=== PATIENT | female | born 1950 | race Caucasian/White ===

== ENCOUNTER 2020-02-05 07:21 | Outpatient (REF) | payer MEDICARE, OTHER, SELFPAY ==
[2020-02-05 08:28] LABS: MANUAL DIFF FLAG NO
[2020-02-05 08:31] LABS: Basophils Absolute Auto 0.1 X10*3/uL (0.0-0.2); Basophils Percent Auto 0.7 % (0-2); Eosinophils Absolute Auto 0.2 X10*3/uL (0.0-0.4); Hematocrit 42.3 % (37-47); Hemoglobin 13.8 g/dl (12.0-16.0); Imm Gran Abs Auto 0.02 X10*3/uL (0.00-0.03); Imm Gran Pct Auto 0.3 % (0.0-0.4); Lymphocytes Absolute Auto 2.2 X10*3/uL (1.2-4.9); Lymphocytes Percent Auto 33.4 % (20-40); Mean Corpuscular HGB Conc 32.6 g/dl (31.0-35.0); Mean Corpuscular Volume 88.9 fL (80-98); Mean Platelet Volume 9.5 fL (9.4-12.3); Monocytes Absolute Auto 0.6 X10*3/uL (0.1-1.2); Monocytes Percent Auto 8.7 % (2-11); Neutrophils Absolute Auto 3.6 X10*3/uL (2.0-8.3); Neutrophils Percent Auto 53.9 % (45-73); Platelet Count 175 X10*3/uL (160-400); Red Blood Count 4.76 X10*6/uL (4.20-5.50); Red Cell Distribution Width 13.1 % (11.0-16.0); White Blood Count 6.7 X10*3/uL (4.8-10.8)
[2020-02-05 08:47] LABS: Estimated Average Glucose 163 mg/dL; Hemoglobin A1c % 7.3 %
[2020-02-05 09:05] LABS: Glucose Urine UA NEG (NEG); Leukocyte Esterase Urine 1+ (NEG); Nitrite Urine NEG (NEG); Specific Gravity - Urine 1.025 (1.005-1.025); Urine Blood TRACE (NEG); Urine Ketones NEG (NEG); Urine Protein NEG (NEG-TRACE)
[2020-02-05 09:07] LABS: Appearance Urine HAZY; Color Urine YELLOW
[2020-02-05 09:17] LABS: RBC Urine 0-2 /HPF (0); Squamous Epithelial Cell Urine 1+ /LPF
[2020-02-05 09:18] LABS: Mucus Urine 1+ /LPF
[2020-02-05 09:32] LABS: Microalbum/Creatinine Ratio Ur 5.4 ug/mg cr
[2020-02-05 09:35] LABS: Alanine Aminotransferase 26 U/L (0-31); Albumin Level 4.2 g/dL (3.5-5.0); Alkaline Phosphatase 73 U/L (39-117); Anion Gap 14 (12-20); Aspartate Amino Transferase 28 U/L (5-31); Bilirubin Total 0.5 mg/dL (0.0-1.0); Blood Urea Nitrogen 19 mg/dL (9-16); Calcium 8.9 mg/dL (8.4-10.2); Carbon Dioxide 28 mmol/L (22-29); Chloride 103 mmol/L (96-108); Cholesterol 191 mg/dL; Estimated Glomerular Filt Rate 48; Glucose Fasting 157 mg/dL (60-99); HDL Cholesterol 65 mg/dL; LDL Cholesterol Calculated 111 mg/dl; Potassium 4.3 mmol/l (3.3-5.1); Sodium 141 mmol/L (135-145); Total Protein 6.5 g/dL (6.5-8.0); Triglycerides 75 mg/dL
[2020-02-05 09:55] LABS: Reflex LDLD? No
== END 2020-02-05 07:22 | disposition home or self-care (01) ==
LOC: HO.LAB 07:21
PROVIDERS: Visit Provider Internal Medicine
DX: I10 Essential (primary) hypertension (principal); E11.9 Type 2 diabetes mellitus without complications; E78.00 Pure hypercholesterolemia, unspecified; N95.8 Other specified menopausal and perimenopausal disorders
CPT/HCPCS: 36415; 80053; 80061; 81001; 81003; 82043; 83036; 85025

== ENCOUNTER 2020-04-25 08:27 | Outpatient (REF) | payer MEDICARE, OTHER, SELFPAY ==
--- NOTE | ~2020-04-25 | MM_ITS ---
EXAMINATION: MM SCREENING DIGITAL BREAST TOMOSYNTHESIS, BILATERAL CLINICAL INFORMATION: Screening. Asymptomatic. The lifetime risk of breast cancer based on the Tyrer-Cuzick Model is 3%. COMPARISON: Mammography: 04/20/2019, 02/03/2017 TECHNIQUE: Digital breast tomosynthesis is performed in both the craniocaudal and mediolateral oblique views along with computer-aided detection (CAD). Synthesized 2D images are generated from the tomosynthesis. FINDINGS: There are scattered areas of fibroglandular density (ACR BI-RADS breast composition Category b). There are no significant masses, abnormal calcifications, or other abnormalities. Parenchymal pattern is similar to prior studies. No developing density. The axilla and skin contours are unremarkable. MM/MM tomosynthesis screening BI IMPRESSION: No mammographic evidence of malignancy. ASSESSMENT: BI-RADS 1: Negative RECOMMENDATION: Routine annual mammography screening. This patient's information was entered into a reminder system with a target due date for their next mammogram.
== END 2020-04-25 08:28 | disposition home or self-care (01) ==
LOC: HO.MAMMO 08:27
PROVIDERS: Visit Provider Internal Medicine
DX: Z12.31 Encounter for screening mammogram for malignant neoplasm of breast (principal)
CPT/HCPCS: 77063; 77067

== ENCOUNTER 2020-08-08 09:43 | Outpatient (REF) | payer MEDICARE, OTHER, SELFPAY ==
[2020-08-08 10:17] LABS: Estimated Average Glucose 163 mg/dL; Hemoglobin A1c % 7.3 %
[2020-08-08 10:45] LABS: Alanine Aminotransferase 29 U/L (0-31); Albumin Level 4.2 g/dL (3.5-5.0); Alkaline Phosphatase 70 U/L (39-117); Aspartate Amino Transferase 30 U/L (5-31); Bilirubin Direct 0.2 mg/dL (0.0-0.5); Bilirubin Total 0.6 mg/dL (0.0-1.0); Cholesterol 185 mg/dL; Glucose Fasting 149 mg/dL (60-99); HDL Cholesterol 59 mg/dL; LDL Cholesterol Calculated 103 mg/dl; Total Protein 6.4 g/dL (6.5-8.0); Triglycerides 119 mg/dL
[2020-08-08 11:30] LABS: Reflex LDLD? No
== END 2020-08-08 09:44 | disposition home or self-care (01) ==
LOC: HO.LNP 09:43
PROVIDERS: Visit Provider Internal Medicine
DX: E11.9 Type 2 diabetes mellitus without complications (principal); E78.00 Pure hypercholesterolemia, unspecified
CPT/HCPCS: 80061; 80076; 82947; 83036

== ENCOUNTER 2021-02-24 10:21 | Outpatient (REF) | payer MEDICARE, OTHER, SELFPAY ==
[2021-02-24 10:24] LABS: MANUAL DIFF FLAG NO
[2021-02-24 10:41] LABS: Basophils Percent Auto 0.5 % (0-2); Eosinophils Absolute Auto 0.2 X10*3/uL (0.0-0.4); Eosinophils Percent Auto 2.6 % (0-4); Hematocrit 41.2 % (37.0-47.0); Hemoglobin 13.4 g/dl (12.0-16.0); Imm Gran Abs Auto 0.02 X10*3/uL (0.00-0.03); Imm Gran Pct Auto 0.3 % (0.0-0.4); Lymphocytes Percent Auto 30.3 % (20-40); Mean Corpuscular HGB Conc 32.5 g/dl (31.0-35.0); Mean Corpuscular Hemoglobin 28.8 pg (27.0-33.0); Mean Corpuscular Volume 88.6 fL (80.0-98.0); Mean Platelet Volume 9.4 fL (9.4-12.3); Monocytes Absolute Auto 0.5 X10*3/uL (0.1-1.2); Monocytes Percent Auto 7.1 % (2-11); Neutrophils Absolute Auto 3.9 x10*3/uL (2.0-8.3); Neutrophils Percent Auto 59.2 % (45-73); Platelet Count 198 X10*3/uL (160-400); Red Blood Count 4.65 X10*6/uL (4.20-5.50); Red Cell Distribution Width 13.6 % (11.0-16.0); White Blood Count 6.6 X10*3/uL (4.8-10.8)
[2021-02-24 10:44] LABS: Appearance Urine CLEAR; Color Urine YELLOW; Glucose Urine UA NEG (NEG); Leukocyte Esterase Urine 1+ (NEG); Nitrite Urine NEG (NEG); Specific Gravity - Urine 1.025 (1.005-1.025); Urine Blood NEG (NEG); Urine Ketones 5 MG/DL (NEG); Urine Protein NEG (NEG-TRACE)
[2021-02-24 10:59] LABS: Estimated Average Glucose 160 mg/dL; Hemoglobin A1c % 7.2 %
[2021-02-24 11:00] LABS: Alanine Aminotransferase 29 U/L (0-31); Albumin Level 4.2 g/dL (3.5-5.0); Alkaline Phosphatase 73 U/L (39-117); Anion Gap 12 (12-20); Aspartate Amino Transferase 26 U/L (5-31); Bilirubin Total 0.4 mg/dL (0.0-1.0); Blood Urea Nitrogen 22 mg/dL (9-16); Calcium 9.5 mg/dL (8.4-10.2); Carbon Dioxide 30 mmol/L (22-29); Chloride 104 mmol/L (96-108); Cholesterol 184 mg/dL; Estimated Glomerular Filt Rate 43; Glucose Fasting 146 mg/dL (60-99); HDL Cholesterol 52 mg/dL; LDL Cholesterol Calculated 106 mg/dl; Sodium 142 mmol/L (135-145); Total Protein 6.7 g/dL (6.5-8.0); Triglycerides 133 mg/dL
[2021-02-24 11:06] LABS: Creatinine Urine 343.72 mg/dL; Microalbum/Creatinine Ratio Ur 6.6 ug/mg cr
[2021-02-24 11:14] LABS: Mucus Urine TRACE /LPF; RBC Urine 0 /HPF (0); Squamous Epithelial Cell Urine TRACE /LPF
[2021-02-24 11:37] LABS: Reflex LDLD? No
== END 2021-02-24 10:22 | disposition home or self-care (01) ==
LOC: HO.LNP 10:21
PROVIDERS: Visit Provider Internal Medicine
DX: E11.9 Type 2 diabetes mellitus without complications (principal); E78.00 Pure hypercholesterolemia, unspecified; I10 Essential (primary) hypertension; R31.9 Hematuria, unspecified
CPT/HCPCS: 80053; 80061; 81001; 82043; 83036; 85025

== ENCOUNTER 2021-08-26 11:08 | Outpatient (REF) | payer MEDICARE, OTHER, SELFPAY ==
[2021-08-26 11:57] LABS: Estimated Average Glucose 154 mg/dL
[2021-08-26 12:37] LABS: Alanine Aminotransferase 21 U/L (0-31); Albumin Level 4.2 g/dL (3.5-5.0); Alkaline Phosphatase 70 U/L (39-117); Aspartate Amino Transferase 27 U/L (5-31); Bilirubin Direct 0.2 mg/dL (0.0-0.5); Bilirubin Total 0.5 mg/dL (0.0-1.0); Cholesterol 186 mg/dL; Glucose Fasting 164 mg/dL (60-99); HDL Cholesterol 53 mg/dL; LDL Cholesterol Calculated 113 mg/dl; Total Protein 6.5 g/dL (6.5-8.0); Triglycerides 100 mg/dL
[2021-08-26 13:56] LABS: Reflex LDLD? No
== END 2021-08-26 11:09 | disposition home or self-care (01) ==
LOC: HO.LNP 11:08
PROVIDERS: PCP Internal Medicine; Visit Provider Internal Medicine
DX: E78.00 Pure hypercholesterolemia, unspecified (principal); E11.9 Type 2 diabetes mellitus without complications
CPT/HCPCS: 80061; 80076; 82947; 83036

== ENCOUNTER 2022-02-24 10:56 | Outpatient (REF) | payer MEDICARE, OTHER, SELFPAY ==
[2022-02-24 11:01] LABS: MANUAL DIFF FLAG NO
[2022-02-24 11:19] LABS: Basophils Absolute Auto 0.1 X10*3/uL (0.0-0.2); Basophils Percent Auto 0.7 % (0-2); Eosinophils Absolute Auto 0.2 X10*3/uL (0.0-0.4); Eosinophils Percent Auto 2.8 % (0-4); Hematocrit 41.6 % (37.0-47.0); Hemoglobin 13.7 g/dl (12.0-16.0); Imm Gran Abs Auto 0.02 X10*3/uL (0.00-0.03); Imm Gran Pct Auto 0.3 % (0.0-0.4); Lymphocytes Absolute Auto 2.7 X10*3/uL (1.2-4.9); Lymphocytes Percent Auto 35.9 % (20-40); Mean Corpuscular HGB Conc 32.9 g/dl (31.0-35.0); Mean Corpuscular Hemoglobin 29.3 pg (27.0-33.0); Mean Corpuscular Volume 89.1 fL (80.0-98.0); Mean Platelet Volume 9.3 fL (9.4-12.3); Monocytes Absolute Auto 0.6 X10*3/uL (0.1-1.2); Monocytes Percent Auto 8.3 % (2-11); Platelet Count 201 X10*3/uL (160-400); Red Blood Count 4.67 X10*6/uL (4.20-5.50); Red Cell Distribution Width 13.3 % (11.0-16.0); White Blood Count 7.6 X10*3/uL (4.8-10.8)
[2022-02-24 11:28] LABS: Estimated Average Glucose 157 mg/dL; Hemoglobin A1c % 7.1 %
[2022-02-24 12:02] LABS: Appearance Urine Clear; Color Urine Yellow; Glucose Urine UA Negative (Negative); Leukocyte Esterase Urine Trace (Negative); Nitrite Urine Negative (Negative); PH 5.5 (5.0-9.0); Specific Gravity - Urine 1.025 (1.005-1.025); UMIC TRIGGER UA YES; Urine Blood Negative (Negative); Urine Ketones Negative (Negative); Urine Protein Negative (Neg-Trace)
[2022-02-24 12:22] LABS: Creatinine Urine 255.52 mg/dL; Microalbum/Creatinine Ratio Ur 6.6 ug/mg cr
[2022-02-24 12:43] LABS: Alanine Aminotransferase 26 U/L (0-31); Albumin Level 4.3 g/dL (3.5-5.0); Alkaline Phosphatase 66 U/L (39-117); Anion Gap 13 (12-20); Aspartate Amino Transferase 28 U/L (5-31); Bilirubin Total 0.5 mg/dL (0.0-1.0); Blood Urea Nitrogen 22 mg/dL (9-16); Calcium 9.6 mg/dL (8.4-10.2); Carbon Dioxide 27 mmol/L (22-29); Chloride 104 mmol/L (96-108); Cholesterol 200 mg/dL; Estimated Glomerular Filt Rate 52; Glucose Fasting 156 mg/dL (60-99); HDL Cholesterol 64 mg/dL; LDL Cholesterol Calculated 117 mg/dl; Potassium 3.9 mmol/L (3.3-5.1); Sodium 140 mmol/L (135-145); Total Protein 6.6 g/dL (6.5-8.0); Triglycerides 95 mg/dL
[2022-02-24 12:47] LABS: Bacteria Urine None Seen (None Seen); Hyaline Casts Urine 0-2 /LPF (0-2); RBC Urine 0-2 /HPF (0-2); Squamous Epithelial Cell Urine 0-2 /HPF (0-2); WBC Urine 0-5 /HPF (0-5)
== END 2022-02-24 10:57 | disposition home or self-care (01) ==
LOC: HO.LNP 10:56
PROVIDERS: Visit Provider Internal Medicine
DX: I10 Essential (primary) hypertension (principal); E11.9 Type 2 diabetes mellitus without complications; E78.00 Pure hypercholesterolemia, unspecified
CPT/HCPCS: 80053; 80061; 81001; 82043; 83036; 85025; 87086

== ENCOUNTER 2022-03-02 11:14 | Outpatient (REF) | payer MEDICARE, OTHER, SELFPAY ==
--- NOTE | ~2022-03-02 | XR_ITS ---
EXAMINATION: XR CHEST CLINICAL INFORMATION: Chronic cough COMPARISON: None TECHNIQUE: 2 views FINDINGS: The cardiomediastinal silhouette is within normal limits. The lungs are well expanded. Small left pleural effusion. Minimal streaky opacity in the left lung base could represent atelectasis. No lobar consolidation. No pulmonary edema. No pneumothorax. No acute osseous abnormality. XR/XR chest 2V IMPRESSION: Suspected small left pleural effusion. Left basilar findings suggesting atelectasis.
== END 2022-03-02 11:15 | disposition home or self-care (01) ==
LOC: HO.XRAY 11:14
PROVIDERS: PCP Internal Medicine; Visit Provider Internal Medicine
DX: R05.3 Chronic cough (principal)
CPT/HCPCS: 71046

== ENCOUNTER 2022-05-22 09:23 | Outpatient (REF) | payer MEDICARE, OTHER, SELFPAY ==
--- NOTE | ~2022-05-22 | CT_ITS ---
EXAMINATION: CT CHEST WITHOUT CONTRAST CLINICAL INFORMATION: Chronic cough. COMPARISON: Chest x-ray 03/05/2022. TECHNIQUE: Multidetector volumetric CT imaging of the chest was done. Axial MIP volume rendering provided. Sagittal and coronal reformatted images were obtained. This CT examination was performed using dose optimization techniques as appropriate, variously including the following: *Automated exposure control *Adjustment of mA and/or kV according to patient size (this includes techniques or standardized protocols for targeted exams where dose is matched to indication/reason for exam; i.e. extremities or head) *Use of iterative reconstruction technique DLP: 136 mGy-cm FINDINGS: SURVEY FIELD TECHNICIAN: Well-inflated lungs are clear. LUNGS: The lungs are well-expanded with several subpleural nodular densities the left lower lobe measuring in the range of 5 mm and less. There is mild bilateral lower lobe bronchiectasis with minimal bronchial wall thickening. No bronchial debris seen. Focal reticular densities in the left lower lobe anterior segment likely atelectasis. There is dependent parenchymal haziness likely atelectasis or nonspecific inflammatory process. This is best visualized on axial image 498/5. MEDIASTINUM: Thyroid lobes are symmetric and normal. The central trachea and the bronchi are widely patent. Heart size and the great vessels are normal caliber. No abnormal sized mediastinal or hilar lymph nodes seen. There is no pericardial effusion. CORONARY ARTERY CALCIFICATION: Mild coronary artery calcifications are present. PLEURA: There is no pleural effusion. No pleural mass or thickening. AXILLA: No abnormal sized lymph nodes seen. The chest wall is unremarkable. UPPER ABDOMEN: Visualized liver, spleen, bilateral adrenal glands, and the gallbladder is unremarkable. OSSEOUS STRUCTURES: No aggressive lytic or sclerotic process seen. There is mild spondylosis throughout the dorsal spine. CT/CT chest wo IV con IMPRESSION: Bronchiectasis with mild bronchial wall thickening suggestive of airway disease with parenchymal atelectatic changes in both lung bases. There are bilateral lower lobe subpleural nodular densities likely reactive inflammatory process. There is no pleural effusion or calcified plaques. Fleischner guidelines were followed.
== END 2022-05-22 09:24 | disposition home or self-care (01) ==
LOC: HO.CT 09:23
PROVIDERS: Visit Provider Internal Medicine
DX: R05.3 Chronic cough (principal)
CPT/HCPCS: 71250

== ENCOUNTER 2022-09-01 10:20 | Outpatient (REF) | payer MEDICARE, OTHER, SELFPAY ==
[2022-09-01 10:48] LABS: Cholesterol 210 mg/dL; HDL Cholesterol 66 mg/dL; LDL Cholesterol Calculated 124 mg/dl; Triglycerides 104 mg/dL
[2022-09-01 10:49] LABS: Alanine Aminotransferase 26 U/L (0-31); Albumin Level 4.3 g/dL (3.5-5.0); Alkaline Phosphatase 74 U/L (39-117); Aspartate Amino Transferase 28 U/L (5-31); Bilirubin Direct 0.2 mg/dL (0.0-0.5); Bilirubin Total 0.6 mg/dL (0.0-1.0); Glucose Fasting 160 mg/dL (60-99); Total Protein 6.5 g/dL (6.5-8.0)
[2022-09-01 11:11] LABS: Estimated Average Glucose 154 mg/dL
[2022-09-01 11:37] LABS: Reflex LDLD? No
== END 2022-09-01 10:21 | disposition home or self-care (01) ==
LOC: HO.LNP 10:20
PROVIDERS: PCP Internal Medicine; Visit Provider Internal Medicine
DX: E78.00 Pure hypercholesterolemia, unspecified (principal); E11.9 Type 2 diabetes mellitus without complications
CPT/HCPCS: 80061; 80076; 82947; 83036

== ENCOUNTER 2023-02-25 11:07 | Outpatient (REF) | payer MEDICARE, OTHER, SELFPAY ==
[2023-02-25 12:27] LABS: Alanine Aminotransferase 25 U/L (0-31); Albumin Level 4.1 g/dL (3.5-5.0); Alkaline Phosphatase 91 U/L (39-117); Anion Gap 11 (12-20); Aspartate Amino Transferase 28 U/L (5-31); Bilirubin Total 0.4 mg/dL (0.0-1.0); Blood Urea Nitrogen 17 mg/dL (9-16); Calcium 9.7 mg/dL (8.4-10.2); Carbon Dioxide 29 mmol/L (22-29); Chloride 106 mmol/L (96-108); Cholesterol 195 mg/dL (<200); Estimated Glomerular Filt Rate 56; Glucose Fasting 150 mg/dL (60-99); HDL Cholesterol 64 mg/dL (>40); LDL Cholesterol Calculated 114 mg/dL (<100); Potassium 4.4 mmol/L (3.3-5.1); Sodium 142 mmol/L (135-145); Total Protein 6.9 g/dL (6.5-8.0); Triglycerides 87 mg/dL (<150)
== END 2023-02-25 11:08 | disposition home or self-care (01) ==
LOC: HO.LNP 11:07
PROVIDERS: Visit Provider Internal Medicine
DX: I10 Essential (primary) hypertension (principal); E11.9 Type 2 diabetes mellitus without complications; E78.00 Pure hypercholesterolemia, unspecified
CPT/HCPCS: 80053; 80061; 81001; 82043; 82570; 83036; 85025; 87086

== ENCOUNTER 2023-04-22 09:03 | Outpatient (REF) | payer MEDICARE, OTHER, SELFPAY | END 2023-04-22 09:04 | disposition home or self-care (01) | LOC: HO.MAMMO 09:03 | PROVIDERS: PCP Internal Medicine; Visit Provider Internal Medicine | DX: Z12.31 Encounter for screening mammogram for malignant neoplasm of breast (principal) | CPT/HCPCS: 77063; 77067 ==

== ENCOUNTER → 2023-04-22 09:15 | Outpatient (BNV) | payer MEDICARE, OTHER, SELFPAY | PROVIDERS: PCP Internal Medicine; Visit Provider Radiology Diagnostic Radiology | DX: Z12.31 Encounter for screening mammogram for malignant neoplasm of breast (principal) | CPT/HCPCS: 77063; 77067 ==

== ENCOUNTER 2023-08-03 07:27 | Day surgery (SDC) | payer MEDICARE, OTHER, SELFPAY ==
[2023-07-29 15:44] VITALS: BMI 25.3
--- NOTE | 2023-08-02 09:29 | HO.ANESPROP2 ---
Documented by User: Dora Galeano NP 08/02/23 09:30 HPI - Anesthesia Eval Consult details Narrative: 72yo F for Colonoscopy [facility] Past Medical History Medical History (Updated 07/29/23 @ 15:44 by Khalida Mitchell RN) GERD (gastroesophageal reflux disease) Anxiety Dyspepsia Hypercholesteremia Pre-diabetes Surgical History Surgical History (Updated 07/29/23 @ 15:41 by Khalida Mitchell RN) History of carpal tunnel release Hx of appendectomy Hx of colonoscopy (~2016) Social History Social History (Updated 07/29/23 @ 15:46 by Khalida Mitchell RN) Patient Tobacco Use Status: Former Tobacco user Advance Directives: No Advance Directives Information Provided: Yes Advance Directives on File: No Current occupational status: retired [employer] Allergies Allergy/AdvReac Type Severity Reaction Status Date / Time No Known Allergies Allergy Verified 07/29/23 15:47 Home Medications ?Medication ?Instructions ?Recorded ?Confirmed ?Last Taken ?Type atorvastatin 80 mg tablet 80 mg PO BEDTIME 07/29/23 07/29/23 08/03/23 History multivitamin 1 tab PO DAILY 07/29/23 07/29/23 Unknown History omeprazole 40 mg capsule,delayed 40 mg PO DAILY 07/29/23 07/29/23 08/03/23 History release sertraline 50 mg tablet 50 mg PO DAILY 07/29/23 07/29/23 08/03/23 History Exam Height,Weight and Vital Signs: Height 5 ft 2 in Weight 62.652 kg Assessment and Plan Assessment Anesthesia Assessment: Chart Reviewed Documented by User: Jailene Tillman MD 08/03/23 08:31 [facility] Past Medical History Medical History (Updated 07/29/23 @ 15:44 by Khalida Mitchell RN) GERD (gastroesophageal reflux disease) Anxiety Dyspepsia Hypercholesteremia Pre-diabetes Family History Family history of problems with anesthesia: No Surgical History Surgical History (Updated 07/29/23 @ 15:41 by Khalida Mitchell RN) History of carpal tunnel release Hx of appendectomy Hx of colonoscopy (~2017) History of Problems with Anesthesia: No Social History Social History (Updated 07/29/23 @ 15:46 by Khalida Mitchell RN) Patient Tobacco Use Status: Former Tobacco user Advance Directives: No Advance Directives Information Provided: Yes Advance Directives on File: No Current occupational status: retired Meds Allergies Allergy/AdvReac Type Severity Reaction Status Date / Time No Known Allergies Allergy Verified 07/29/23 15:47 Home Medications ?Medication ?Instructions ?Recorded ?Confirmed ?Last Taken ?Type atorvastatin 80 mg tablet 80 mg PO BEDTIME 07/29/23 07/29/23 08/03/23 History multivitamin 1 tab PO DAILY 07/29/23 07/29/23 Unknown History omeprazole 40 mg capsule,delayed 40 mg PO DAILY 07/29/23 07/29/23 08/03/23 History release sertraline 50 mg tablet 50 mg PO DAILY 07/29/23 07/29/23 08/03/23 History Exam Airway Mallampati Class: II TM Dist: >3cm Neck ROM: Full Denture: Upper Assessment and Plan Assessment Anesthesia Assessment: Anesthesia Plan Discussed Final Anesthetic Review Family History of Problems with Anesthesia: No History of Problems with Anesthesia: No NPO: Yes ASA Class: II Final Preanesthetic Review: No Changes in Pt Med Stat, Meds/Allgs Chart Reviewed, Anes Risks/Benef Reviewed and DNR Form (If Appl.) Patient Risk: Low Procedure Risk: Low Anesthetic Plan Anesthetic Plan: TIVA Disposition: Standard PACU
[2023-08-03 07:31] VITALS: BMI 25.5
[2023-08-03 07:32] VITALS: BP 135/67; PULSE 66; RESP 18; TEMP 36.8; O2SAT 98
[2023-08-03] MEDS: Lactated Ringers 1,000 ML 100 ML IVCONT (07:50)
--- NOTE | 2023-08-03 08:37 | MHC.SHP ---
Pre-Procedural Eval Section A - 24 Hr Update-Section A only Date of Service: 08/03/23 Section B - Complete if H&P > 30 days Chief Complaint: screening Details of Present Illness: see H&P no changes Relevant Family History (Specify if Yes): No Relevant Social History: None Present Medications: see Short Stay Collaborative assessment Medical History: No relevant PMH History of Previous Operations: No relevant previous surgery Allergies: Allergies Allergy/AdvReac Type Severity Reaction Status Date / Time No Known Allergies Allergy Verified 07/29/23 15:47 Review of Systems Sugical H&P ROS: Negative: Constitution, Cardiovascular, Respiratory, Neurological, Psychiatric, Hem-Onc, Allergic/Immunologic, Gastrointestinal, Genitourinary, Musculoskeletal, Integumentary, Endocrine and Eyes/Ears/Nose/Throat Exam Surgical H&P Exam: Normal: HEENT, Normal: Heart, Normal: Lungs, Normal: Extremities, Normal: Abdomen, Normal: Skin and Normal: Neurological Plan Diagnosis/Plan: Unchanged I have reviewed the history and physical and performed a pertinent physical examination on my patient. No changes have occurred unless specified. Time Spent With Patient Time: Total time managing care of this patient today ____ minutes.
[2023-08-03 09:19] VITALS: BP 103/63; PULSE 52; RESP 16; TEMP 36.4; O2SAT 98
[2023-08-03 09:34] VITALS: BP 152/78; PULSE 55; RESP 16; TEMP 36.3; O2SAT 100
--- NOTE | 2023-08-03 09:43 | OP_ITS ---
DATE OF SERVICE: 08/03/2023 SURGEON: Johnny Cornejo MD INDICATIONS: Colon cancer screening and prior history of adenomatous colon polyps. PREOPERATIVE DIAGNOSIS: POSTOPERATIVE DIAGNOSIS: PROCEDURE PERFORMED: Colonoscopy to the terminal ileum with biopsy. ESTIMATED BLOOD LOSS: COMPLICATIONS: ANESTHESIA: Monitored anesthesia care. ASSISTANTS: SPECIMENS: DESCRIPTION OF PROCEDURE: A history and physical was performed. The risks and benefits of the procedure were explained to the patient and informed consent was obtained. The patient was placed in the left lateral decubitus position. A digital rectal exam was performed and was found to be normal. The Olympus pediatric video colonoscope was introduced into the rectum and advanced to the cecum. The cecum was identified by transillumination, palpation, and identification of ileocecal valve. Examination was performed and the scope was removed. She tolerated the procedure well and was returned to recovery area in stable condition. FINDINGS: The terminal ileum was examined and appeared normal. The visualized colonic mucosa was normal. The quality of the prep was good. A single polyp measuring less than 5 mm identified in the rectum and removed with the biopsy forceps. No other polyps were identified. Retroflexed examination showed small internal hemorrhoids. IMPRESSION: Colon polyp. RECOMMENDATION: Follow up the biopsy results. MD NAI Barrett/YONIS / [id number]
== END 2023-08-03 10:56 | disposition home or self-care (01) ==
PROVIDERS: PCP Internal Medicine; Visit Provider Internal Medicine Gastroenterology
PROC: 0DJD8ZZ Inspection of Lower Intestinal Tract, Via Natural or Artificial Opening Endoscopic (ICD-10-PCS; CPT 45378; principal; 2023-08-03 09:10)
DX: Z12.11 Encounter for screening for malignant neoplasm of colon (principal); D12.8 Benign neoplasm of rectum; Z86.010 Personal history of colon polyps; I10 Essential (primary) hypertension; Z79.899 Other long term (current) drug therapy
CPT/HCPCS: 45380; 88305; J2704

== ENCOUNTER 2023-08-23 10:47 | Outpatient (REF) | payer MEDICARE, OTHER, SELFPAY ==
[2023-08-23 11:38] LABS: Alanine Aminotransferase 31 U/L (0-31); Albumin Level 4.1 g/dL (3.5-5.0); Alkaline Phosphatase 82 U/L (39-117); Aspartate Amino Transferase 29 U/L (5-31); Bilirubin Direct 0.1 mg/dL (0.0-0.5); Bilirubin Total 0.3 mg/dL (0.0-1.0); Cholesterol 190 mg/dL (<200); Glucose Fasting 149 mg/dL (60-99); HDL Cholesterol 57 mg/dL (>40); LDL Cholesterol Calculated 107 mg/dL (<100); Total Protein 6.8 g/dL (6.5-8.0); Triglycerides 134 mg/dL (<150)
[2023-08-23 12:06] LABS: Estimated Average Glucose 160 mg/dL; Hemoglobin A1c % 7.2 % (<6.0)
== END 2023-08-23 10:48 | disposition home or self-care (01) ==
LOC: HO.LNP 10:47
PROVIDERS: Visit Provider Internal Medicine
DX: E11.9 Type 2 diabetes mellitus without complications (principal); E78.00 Pure hypercholesterolemia, unspecified
CPT/HCPCS: 80061; 80076; 82947; 83036

== ENCOUNTER 2023-10-05 09:22 | Outpatient (REF) | payer MEDICARE, OTHER, SELFPAY ==
--- NOTE | ~2023-10-05 | CT_ITS ---
EXAMINATION: CT CHEST WITHOUT CONTRAST CLINICAL INFORMATION: Bronchiectasis without complications. COMPARISON: CT chest dated 05/22/2022. TECHNIQUE: Multidetector volumetric CT imaging of the chest was done. Axial MIP volume rendering provided. Sagittal and coronal reformatted images were obtained. This CT examination was performed using dose optimization techniques as appropriate, variously including the following: *Automated exposure control *Adjustment of mA and/or kV according to patient size (this includes techniques or standardized protocols for targeted exams where dose is matched to indication/reason for exam; i.e. extremities or head) *Use of iterative reconstruction technique DLP: 125 mGy-cm FINDINGS: FELT CHECKER: The lungs are symmetrically well-expanded and grossly clear. LUNGS: At the posterior right base (8:153), a 2 mm noncalcified nodule is seen. This is unchanged from 05/22/2022 (5:479). No new nodule, mass, infiltrate or groundglass opacity is seen. There is biapical pleural and parenchymal scarring. There is bibasilar scar/subsegmental atelectasis, right greater than left. There is stable very mild lower lobe traction bronchiectasis, particularly on the right. There is no generalized small airway thickening. The central airways appear patent. MEDIASTINUM: The thyroid is unremarkable. There is no thoracic aortic aneurysm. There are mild atherosclerotic calcifications of the great vessel origins and thoracic aorta. No mediastinal or hilar lymphadenopathy is seen. CORONARY ARTERY CALCIFICATION: Mild to moderate. PLEURA: There is no pleural effusion. No pleural mass or thickening. AXILLA: No lymphadenopathy. UPPER ABDOMEN: Unremarkable. OSSEOUS STRUCTURES: There is multi-level mild cervicothoracic spondylosis. No acute or aggressive osseous finding is noted. CT/CT chest wo IV con IMPRESSION: 1. A stable 2 mm noncalcified nodule is seen at the posterior right base, unchanged from 05/22/2022. No further imaging follow-up is recommended. According to the UPDATED 2017 Fleischner Society recommendations, the advised follow-up imaging for solid nodules < 6 mm is: LOW RISK PATIENT: No routine follow-up. HIGH RISK PATIENT: Optional CT at 12 months. 2. No new nodule, mass, infiltrate or groundglass opacity is seen. 3. There is bibasilar scar/subsegmental atelectasis, right greater than left. There is associated very mild traction bronchiectasis. 4. No thoracic lymphadenopathy or pleural effusion is seen. 5. There are mild to moderate coronary artery atherosclerotic calcifications. 6. There is multi-level mild cervicothoracic spondylosis. No acute or aggressive osseous finding is noted. Fleischner guidelines were followed.
== END 2023-10-05 09:23 | disposition home or self-care (01) ==
LOC: HO.CT 09:22
PROVIDERS: PCP Internal Medicine; Visit Provider Internal Medicine
DX: J47.9 Bronchiectasis, uncomplicated (principal)
CPT/HCPCS: 71250

== ENCOUNTER 2024-03-02 11:43 | Outpatient (REF) | payer MEDICARE, OTHER, SELFPAY ==
[2024-03-02 11:56] LABS: Basophils Percent Auto 0.7 % (0-2); Eosinophils Absolute Auto 0.3 X10*3/uL (0.0-0.4); Eosinophils Percent Auto 4.3 % (0-4); Hemoglobin 13.7 g/dl (12.0-16.0); Imm Gran Abs Auto 0.01 X10*3/uL (0.00-0.03); Imm Gran Pct Auto 0.2 % (0.0-0.4); Lymphocytes Absolute Auto 2.2 X10*3/uL (1.2-4.9); Lymphocytes Percent Auto 37.7 % (20-40); MANUAL DIFF FLAG NO; Mean Corpuscular HGB Conc 33.4 g/dl (31.0-35.0); Mean Corpuscular Hemoglobin 29.3 pg (27.0-33.0); Mean Corpuscular Volume 87.8 fL (80.0-98.0); Mean Platelet Volume 9.5 fL (9.4-12.3); Monocytes Absolute Auto 0.5 X10*3/uL (0.1-1.2); Monocytes Percent Auto 9.2 % (2-11); Neutrophils Absolute Auto 2.8 x10*3/uL (2.0-8.3); Neutrophils Percent Auto 47.9 % (45-73); Platelet Count 170 X10*3/uL (160-400); Red Blood Count 4.67 X10*6/uL (4.20-5.50); Red Cell Distribution Width 13.9 % (11.0-16.0); White Blood Count 5.8 X10*3/uL (4.8-10.8)
[2024-03-02 12:04] LABS: Appearance Urine Clear; Color Urine Yellow; Glucose Urine UA Negative (Negative); Leukocyte Esterase Urine Large (3+) (Negative); Nitrite Urine Negative (Negative); UMIC TRIGGER UACC YES; Urine Blood Negative (Negative); Urine Ketones Negative (Negative); Urine Protein Trace mg/dL (Neg-Trace)
[2024-03-02 12:16] LABS: Bacteria Urine 1+ (None Seen); Hyaline Casts Urine 0-2 /LPF (0-2); UACC Culture Trigger YES
--- OUTSIDE RECORDS SUMMARY | 2024-03-02 12:27 | XMS_ITS ---
Author Organization Obi Rasmussen MD Address [address] [place], [place] [id number] Care Team Providers Care Editor Continuity And Script Name Role Phone Obi Rasmussen Primary Care Provider [phone] RESULTS Component Value Reference Range Notes Complete Blood Count Auto Di ff (Not yet reviewed by provider) Interpretation: Performing Lab:[facility], [address] [place] [phone] Notes/Report: White Blood Count 5.8 4.8-10.8 X10*3/uL Red Blood Count 4.67 4.20-5.50 X10*6/uL Hemoglobin 13.7 12.0-16.0 g/dl Hematocrit 41.0 37.0-47.0 % Mean Corpuscular Volume 87.8 80.0-98.0 fL Mean Corpuscular Hemoglobin 29.3 27.0-33.0 pg Mean Corpuscular HGB Conc 33.4 31.0-35.0 g/dl Red Cell Distribution Width 13.9 11.0-16.0 % Platelet Count 170 160-400 X10*3/uL Mean Platelet Volume 9.5 9.4-12.3 fL Neutrophils Percent Auto 47.9 45-73 % Imm Gran Pct Auto 0.2 0.0-0.4 % Lymphocytes Percent Auto 37.7 20-40 % Monocytes Percent Auto 9.2 2-11 % Eosinophils Percent Auto 4.3 0-4 % Basophils Percent Auto 0.7 0-2 % NRBC Pct Auto 0.0 0.0-0.2 /100WBC Neutrophils Absolute Auto 2.8 2.0-8.3 x10*3/u L Imm Gran Abs Auto 0.01 0.00-0.03 X10*3/uL Lymphocytes Absolute Auto 2.2 1.2-4.9 X10*3/u L Monocytes Absolute Auto 0.5 0.1-1.2 X10*3/uL Eosinophils Absolute Auto 0.3 0.0-0.4 X10*3/u L Basophils Absolute Auto 0.0 0.0-0.2 X10*3/uL NRBC Abs Auto 0.000 0.0-0.012 X10*3/uL UA ClnCatch+Micro w/rflx Cul t (Not yet reviewed by provider) Interpretation: Performing Lab:[facility], [address] [place] [id number] Notes/Report: [id number] Urine, Clean Catch Color Urine Yellow Appearance Urine Clear PH 6.0 5.0-9.0 Glucose Urine UA Negative Negative mg/dL Urine Blood Negative Negative Specific [place] - Urine 1.020 1.005-1.025 Urine Protein Trace Neg-Trace mg/dL Urine Ketones Negative Negative mg/dL Nitrite Urine Negative Negative Leukocyte Esterase Urine Large (3+) Negative RBC Urine 3-5 0-2 /HPF WBC Urine 11-20 0-5 /HPF Squamous Epithelial Cell Urine 3-5 0-2 /HPF Bacteria Urine 1+ None Seen Hyaline Casts Urine 0-2 0-2 /LPF REASON FOR VISIT fasting yearly labs Encounters Encounter Location Date Provider Diagnosis Obi Rasmussen MD [address] [place], [place] [phone] 03/02/2024 Obi Rasmussen Essential (primary) hypertension I10 ; Type 2 diabetes mellitus without complications E11.9 and Pure hypercholesterolemia E78.00 ASSESSMENTS Encounter Date Diagnosis Assessment Notes Treatment Notes Treatment Clinical Notes 03/02/2024 Essential (primary) hypertension (ICD-10 - I10) 03/02/2024 Type 2 diabetes victor hugo itus without complications (ICD-10 - E11.9) 03/02/2024 Pure hypercholestero lemia (ICD-10 - E78.00) PLAN OF TREATMENT Pending Test Test Name Order Date Complete Blood Count Auto Diff 5 Comprehensive Tererro. Panel Fast 5 Lipid Panel 03/02/2024 Microalbumin, Random 03/02/2024 Hemoglobin A1c 03/02/2024 UA ClnCatch+Micro w/rflx Cult 03/02/2024 Next Appt Details Provider Name:Obi lira, 03/09/2024 11:00:00 AM, [address] [place] [address], [address], [place], [place], [phone],
--- OUTSIDE RECORDS SUMMARY | 2024-03-02 12:28 | XMS_ITS | Patient Health Record ---
Author Organization [facility] Address [address] [place] [address] Care Team Providers Care House Worker General Name Role Phone Obi Rasmussen MD Primary Care Provider Johnny Valenzuela Jr Unavailable ALLERGIES No Known Allergies RESULTS Component Value Reference Range Notes Pathology Reviewed date:08/05/2023 09:52:36 AM Interpretation: Performing Lab:[facility], [address] [place] [phone] Notes/Report: REASON FOR REFERRAL No Information MEDICATIONS Medication SIG (Take, Route, Frequency, Duration) Notes Start Date End Date Status MiraLax (colon prep) 17 GM/SCOOP mixed with Gatorade or Crystal Light Orally begin at 5:00 p.m. the day before the procedure for 1 day 06/28/2023 Active Sertraline HCl 50 MG 1 tablet Orally Onc e a day for 30 day(s) Active Atorvastatin Calcium 80 MG 1 tablet Oral ly Once a day Active Multi Vitamin/Minerals Active Omeprazole 20 MG 2 capsules Orally On ce a day Active IMMUNIZATIONS Vaccine Route Administration Date Status Comme nts Influenza Unknown 11/10/2022 Administered SOCIAL HISTORY Sex Assigned At : Social History Observation Description Sex Assigned At Unknown PROBLEMS Problem Type ICD Code Onset Dates Problem Status W/U Status Risk SNOMED Code Notes Problem Colon cancer screening (Z12.11) Active confirmed 960629006 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 (Z79.82) Active confirmed 807888823 Problem Personal history of colonic polyps (Z86.010) Active confirmed 458040798 VITAL SIGNS Temperature 97.3 degrees Fahrenheit 06/28/2023 Blood pressure diastolic 00 mm Hg 06/28/2023 Height 62 in 06/28/2023 Blood pressure systolic 000 mm Hg 06/28/2023 Weight 138 lb 2 oz lbs 06/28/2023 BMI 25.26 kg/m2 06/28/2023 Encounters Encounter Location Date Provider Diagnosis [facility] Out[facility] [address] [place], [place] [phone] 08/03/2023 Johnny Cornejo Jr Encounter for screening colonoscopy Z12.11 ; Personal history of colonic polyps Z86.010 and Colon polyps K63.5 [facility] [address] [place] [phone] 06/28/2023 Johnny Cornejo Jr Colon cancer screening Z12.11 and Personal history of colonic polyps Z86.010 [facility] [address] [place] [phone] 05/31/2023 Johnny Cornejo Jr [facility] [address] [place] [phone] 08/05/2023 Johnny Cornejo Jr ASSESSMENTS Encounter Date Diagnosis Assessment Notes Treatment Notes Treatment Clinical Notes 08/03/2023 Encounter for screening colonoscopy (ICD-10 - Z12.11) 08/03/2023 Personal history of colonic polyps (ICD-10 - Z86.010) 06/28/2023 Colon cancer screening (ICD-10 - Z12.11) Colonoscopy material was printed 06/28/2023 Personal history of colonic polyps (ICD-10 - Z86.010) 08/03/2023 Colon polyps (ICD-10 - K63.5) PLAN OF TREATMENT Future Test Test Name Order Date COLONOSCOPY 09/12/2015 COLONOSCOPY 06/28/2023 Insurance Providers Payer Name Payer Address Payer Phone Subscriber Number Group Number Insured Name Patient Relationship to Insured Coverage Start Date Coverage End Date MEDICARE OF [place] [address] [place] [address] [phone] [id number] ALEX FERMINETTE Self - patient is the insured [facility] IN[facility]MN[facility] [address] [place] [address] [id number] ZANDER JOHN Self - patient is the insured MEDICAL (GENERAL) HISTORY Medical History History ICD Code prediabetic hypercholesterolemia hypertension dyspepsia Colonoscopy 04/10, tubular adenoma, five- year followup Anxiety Surgical History Surgery Date(Month/Year) appendectomy carpal tunnel release
--- OUTSIDE RECORDS SUMMARY | 2024-03-02 12:28 | XMS_ITS ---
Author Organization [facility] Address [address] [place] [address] Care Team Providers Care Auto Damage Estimator Name Role Phone Valery ORTIZ, Obi Primary Care Provider Arnaud Cornejo Jr, Johnny Mosqueda [phone] REASON FOR VISIT screening Encounters Encounter Location Date Provider Diagnosis [facility] Outpatient [address] [place] [phone] 08/03/2023 Johnny Cornejo Jr Encounter for screening colonoscopy Z12.11 ; Personal history of colonic polyps Z86.010 and Colon polyps K63.5 ASSESSMENTS Encounter Date Diagnosis Assessment Notes Treatment Notes Treatment Clinical Notes 08/03/2023 Encounter for screening colonoscopy (ICD-10 - Z12.11) 08/03/2023 Personal history of colonic polyps (ICD-10 - Z86.010) 08/03/2023 Colon polyps (ICD-10 - K63.5) PLAN OF TREATMENT No Information
--- OUTSIDE RECORDS SUMMARY | 2024-03-02 12:28 | XMS_ITS ---
Author Organization [facility] Address [address] [place] [address] Care Team Providers Care Client Relations Representative Name Role Phone Obi Rasmussen MD Primary Care Provider Arnaud Cornejo Jr, Johnny Mosqueda [phone] REASON FOR VISIT pathology Encounters Encounter Location Date Provider Diagnosis [facility] [address] [place] [address] 08/05/2023 Johnny Cornejo Jr PLAN OF TREATMENT No Information
--- OUTSIDE RECORDS SUMMARY | 2024-03-02 12:28 | XMS_ITS ---
Author Organization [facility] Address [address] [place] [address] Care Team Providers Care Crew Mess Attendant Name Role Phone Valery ORTIZ, Obi Primary Care Provider Johnny Valenzuela Jr ALLERGIES No Known Allergies REASON FOR VISIT Patient presents today for a colon screening MEDICATIONS Medication SIG (Take, Route, Frequency, Duration) [...] capsules Orally On ce a day Active PROBLEMS Problem Type ICD Code Onset Dates Problem Status W/U Status Risk SNOMED Code Notes Problem Personal history of colonic polyps (Z86.010) Active confirmed [id number] VITAL SIGNS BMI 25.26 kg/m2 06/28/2023 Blood pressure systolic 000 mm Hg 06/28/19 24 Blood pressure diastolic 00 mm Hg 024 Height 62 in 06/28/2023 Temperature 97.3 degrees Fahrenheit 06/28/19 24 Weight 138 lb 2 oz lbs 06/28/2023 Encounters Encounter Location Date Provider Diagnosis [facility] [address] [place] [address] 06/28/2023 Johnny Cornejo Jr Colon cancer screening Z12.11 and Personal history of colonic polyps Z86.010 ASSESSMENTS Encounter Date Diagnosis Assessment Notes Treatment Notes Treatment Clinical Notes 06/28/2023 Colon cancer screening (ICD-10 - Z12.11) Colonoscopy material was printed 06/28/2023 Personal history of colonic polyps (ICD-10 - Z86.010) PLAN OF TREATMENT Medication Medication Name Sig Start Date Stop Date Notes MiraLax (colon prep) 17 GM/SCOOP mixed with Gatorade or Crystal Light Orally begin at 5:00 p.m. the day before the procedure for 1 day 06/28/2023 Treatment Notes Assessment Notes Colon cancer screening Colonoscopy mater ial was printed Future Test Test Name Order Date COLONOSCOPY 06/28/2023 Next Appt Details Follow Up: 1 Year, Reason: Progress Notes * Examination Category Sub-Category Detail Notes General Examination GENERAL APPEARANCE: in no ac [place] distress HEAD: normocephalic EYES: sclera non-icteric NECK/THYROID: no lymphadenopathy HEART: S1, S2 normal, no mu rmurs CHEST: normal shape and exp ansion LUNGS: clear to auscultatio n bilaterally ABDOMEN: soft, nontender, non distended, bowel sounds present, no organomegaly SKIN: anicteric EXTREMITIES: no clubbing, cyanosi s, or edema PSYCH: cognitive function i ntact ORAL CAVITY: mucosa moist
--- OUTSIDE RECORDS SUMMARY | 2024-03-02 12:28 | XMS_ITS ---
Author Organization Obi Rasmussen MD Address [address] [place], [place] [id number] Care Team Providers Care Auto Leasing Manager Name Role Phone Obi Rasmussen Primary Care Provider [phone] ALLERGIES Allergen (clinical drug ingredient) Drug/Non Drug Allergy documented on EMR Reaction Allergy Type Onset Date Status lisinopril Lisinopril cough Drug Allergy Activ e REASON FOR VISIT 3 WEEK F/U, c/o ongoing cough x 3 years MEDICATIONS Medication SIG (Take, Route, Frequency, Duration) Notes Start Date End Date Status Aleve 220 MG 1 tablet with food o r milk as needed Orally every 12 hrs Not-Taking Tylenol 325 MG 1 tablet as needed Orally every 4 hrs Not-Taking Albuterol Sulfate HFA 108 (90 Base) MCG/ACT 1 puff as needed Inhalation every 4 hrs for 30 days 03/02/2022 Not-Taking Rosuvastatin Calcium 40 MG TAKE 1 TABLET BY MOUTH EVERY DAY Active Sertraline HCl 50 MG TAKE 1 TABLET BY MO UTH EVERY DAY for 90 Active Ibuprofen 200 MG 2 tablet with food o r milk as needed Orally Three times a day Not-Taking Omeprazole 20 MG TAKE 1 CAPSULE BY MO UTH EVERY DAY for 90 Active IMMUNIZATIONS Vaccine Route Administration Date Status Comme nts Influenza High Dose IM Intramuscular 11/15/2023 Administer ed VITAL SIGNS BMI 24.27 kg/m2 11/15/2023 Blood pressure systolic 148 mm Hg 11/15/19 24 Blood pressure diastolic 70 mm Hg 024 Height 63 in 11/15/2023 Weight 137 lbs 11/15/2023 Encounters Encounter Location Date Provider Diagnosis Obi Rasmussen MD [address] [place], [place] [phone] 11/15/2023 Obi Rasmussen Bronchiectasis witho ut complication J47.9 ; Essential (primary) hypertension I10 ; MCI (mild cognitive impairment) G31.84 and Encounter for immunization Z23 ASSESSMENTS Encounter Date Diagnosis Assessment Notes Treatment Notes Treatment Clinical Notes 11/15/2023 Bronchiectasis without complication (ICD-10 - J47.9) antibiotics did not make much of a difference 11/15/2023 Essential (primary) hypertension (ICD-10 - I10) doing well 11/15/2023 MCI (mild cognitive impairment) (ICD-10 - G31.84) have explained this to her 11/15/2023 Encounter for immunization (ICD-10 - Z23) PLAN OF TREATMENT Treatment Notes Assessment Notes Bronchiectasis without complication anti biotics did not make much of a difference Essential (primary) hypertension doing w ell MCI (mild cognitive impairment) have exp lained this to her Next Appt Details Provider Name:Obi Rush ier, 03/09/2024 11:00:00 AM, [address], [address], [place], [place], [id number], Progress Notes * Examination Category Sub-Category Detail Notes General Examination GENERAL APPEARANCE: alert, w ell hydrated, in no distress HEAD: normocephalic HEART: no murmurs, rubs, ga llops, regular rate and rhythm LUNGS: no wheezes, rales, r honchi, good air movement, clear to auscultation bilaterally SKIN: good turgor
--- OUTSIDE RECORDS SUMMARY | 2024-03-02 12:28 | XMS_ITS | Patient Health Record ---
Author Organization Obi Rasmussen MD Address [address] [place], [place] [phone] Care Team Providers Care Sewer Separation Designer Name Role Phone Obi Rasmussen Primary Care Provider ALLERGIES Allergen (clinical drug ingredient) Drug/Non Drug Allergy documented on EMR Reaction Allergy Type Onset Date Status lisinopril Lisinopril cough Drug Allergy Activ e RESULTS Component Value Reference Range Notes MM tomosynthesis screening B I Reviewed date:05/10/2023 05:23:20 PM Interpretation: Performing Lab: Notes/Report: [address] [place] [address] Mammography Report Signed Patient: Megha Fermin MR#: [id number] : 1950 Acct:[id number] Age/Sex: 72 / F ADM Date: 04/22/23 Loc: HO.MAMMO Attending Dr: Obi Rasmussen MD Ordering Physician: Obi Rasmussen MD Results: 1Ne gative Date of Service: 04/22/23 Follow Up: 1 Year From Orig inal Mammogram Procedure(s): MM tomosynthesis screening BI Accession Number(s): [id number] cc: Obi Rasmussen MD EXAMINATION: MM SCREENING DIGITAL BREAST TOMOSYNTHESIS, BILATERAL CLINICAL INFORMATION: Screening. Asymptomatic. COMPARISON: Mammography: This study is compared with prior exams dating back to 2017. TECHNIQUE: Digital breast tomosynthesis is performed in both the craniocaudal and mediolateral oblique views along with computer-aided detection (CAD). Synthesized 2D images are generated from the tomosynthesis. FINDINGS: There are scattered areas of fibroglandular density (ACR BI-RADS breast composition Category b). There are no significant masses, abnormal calcifications, or other abnormalities. MM/MM tomosynthesis screening BI IMPRESSION: No mammographic evidence of malignancy. ASSESSMENT: BI-RADS BI-RADS 1 - Negative RECOMMENDATION: Routine annual mammography screening. 1 year F/U This examination should not preclude the clinical evaluation of a suspicious palpable abnormality. This patient's information was entered into a reminder system with a target due date for their next mammogram. Dictated By: Nara Lynn MD Signed By: <Electronically signed by Nara Lynn MD in OV> 05/09/23 1824 DD/ 0922 TD/TT: Gang Sawyer: Pathology Reviewed date:08/05/2023 11:57:21 AM Interpretation: Performing Lab:[facility], [address] [place] [phone] Notes/Report: Lipid Panel Reviewed date:08/23/2023 12:17:37 PM Interpretation: Performing Lab:[facility], [address] [place] [phone] Notes/Report: Triglycerides 134 <150 mg/dL Desirable Triglyceride: less than 150 mg/dL Borderline High Triglyceride 150-199 mg/dL High Triglyceride: 200-499 mg/dL Very High Triglyceride: greater than or equal to 5OO mg/dL Cholesterol 190 <200 mg/dL Desirable Cholesterol: less than 200 mg/dL Borderline High Cholesterol: 200-239 mg/dL High Cholesterol: greater than 239 mg/dL LDL Cholesterol Calculated 107 <100 mg/dL Desirable LDL: less than 100 mg/dL Near Optimal/Above Optimal LDL: 110-129 mg/dL Borderline High LDL: 130-159 mg/dL High LDL: 160-189 mg/dL Very High LDL: greater than or equal to 190 mg/dL HDL Cholesterol 57 >40 mg/dL Desirable HDL: greater than 40 mg/dL Note: This HDL assay may give artificially low results in patients with liver disease. Aman Morales Reviewed date:08/23/2023 12:15:11 PM Interpretation: Performing Lab:[facility], [address] [place] [phone] Notes/Report: Aman Morales See Note Specimen held untested for 24 hours; Call to request Chemistry testing. Liver Panel Reviewed date:08/23/2023 12:19:31 PM Interpretation: Performing Lab:[facility], [address] [place] [phone] Notes/Report: Bilirubin Total 0.3 0.0-1.0 mg/dL Bilirubin Direct 0.1 0.0-0.5 mg/dL Aspartate Amino Transferase 29 5-31 U/L Alanine Aminotransferase 31 0-31 U/L Total Protein 6.8 6.5-8.0 g/dL Albumin Level 4.1 3.5-5.0 g/dL Alkaline Phosphatase 82 39-117 U/L Glucose Fasting Reviewed date:08/23/2023 12:17:28 PM Interpretation: Performing Lab:[facility], [address] [place] [phone] Notes/Report: Glucose Fasting 149 60-99 mg/dL A fasting glucose of 126 mg/dl or greater on more than one occasion is considered diagnostic of diabetes. Hemoglobin A1c Reviewed date:08/23/2023 12:15:19 PM Interpretation: Performing Lab:[address] [phone] Notes/Report: Hemoglobin A1c % 7.2 <6.0 % Hemoglobin A1C Reference Range Adults: 4.8 - 6.0 % Non diabetic: < 6.0 % Goal: < 7.0 % Additional Action Suggested: > 8.0 % Note: Hemoglobin A1c results are invalid for patients with abnormal amounts of HbF. Blood transfusions may impact the HbA1c concentration in the patient sample. Estimated Average Glucose 160 eAG = Estimated average glucose which is %A1C expressed as average glucose, using the formula of the U0V-Uzfvovn Average Glucose study (ADAG), Diabetes Care, Vol.31,#8, Sep. 2007 CT chest wo con Reviewed date:10/06/2023 08:11:39 PM Interpretation: Performing Lab: Notes/Report: [address] [address] [address] Scan Report Signed Patient: Megha Fermin MR#: [id number] : 1950 Acct:[id number] Age/Sex: 72 / F ADM Date: 10/05/23 Loc: HO.CT Attending Dr: Obi Rasmussen MD Ordering Physician: Obi Rasmussen MD Date of Service: 10/05/23 Procedure(s): CT chest wo IV con Accession Number(s): [id number] cc: Obi Rasmussen MD EXAMINATION: CT CHEST WITHOUT CONTRAST CLINICAL INFORMATION: Bronchiectasis without complications. COMPARISON: CT chest dated 05/22/2022. TECHNIQUE: Multidetector volumetric CT imaging of the chest was done. Axial MIP volume rendering provided. Sagittal and coronal reformatted images were obtained. This CT examination was performed using dose optimization techniques as appropriate, variously including the following: *Automated exposure control *Adjustment of mA and/or kV according to patient size (this includes techniques or standardized protocols for targeted exams where dose is matched to indication/reason for exam; i.e. extremities or head) *Use of iterative reconstruction technique DLP: 125 mGy-cm FINDINGS: INCOME TAX CONSULTANT: The lungs are symmetrically well-expanded and grossly clear. LUNGS: At the posterior right base (8:153), a 2 mm noncalcified nodule is seen. This is unchanged from 05/22/2022 (5:479). No new nodule, mass, infiltrate or groundglass opacity is seen. There is biapical pleural and parenchymal scarring. There is bibasilar scar/subsegmental atelectasis, right greater than left. There is stable very mild lower lobe traction bronchiectasis, particularly on the right. There is no generalized small airway thickening. The central airways appear patent. MEDIASTINUM: The thyroid is unremarkable. There is no thoracic aortic aneurysm. There are mild atherosclerotic calcifications of the great vessel origins and thoracic aorta. No mediastinal or hilar lymphadenopathy is seen. CORONARY ARTERY CALCIFICATION: Mild to moderate. PLEURA: There is no pleural effusion. No pleural mass or thickening. AXILLA: No lymphadenopathy. UPPER ABDOMEN: Unremarkable. OSSEOUS STRUCTURES: There is multi-level mild cervicothoracic spondylosis. No acute or aggressive osseous finding is noted. CT/CT chest wo IV con IMPRESSION: 1. A stable 2 mm noncalcified nodule is seen at the posterior right base, unchanged from 05/22/2022. No further imaging follow-up is recommended. According to the UPDATED 2017 Fleischner Society recommendations, the advised follow-up imaging for solid nodules < 6 mm is: LOW RISK PATIENT: No routine follow-up. HIGH RISK PATIENT: Optional CT at 12 months. 2. No new nodule, mass, infiltrate or groundglass opacity is seen. 3. There is bibasilar scar/subsegmental atelectasis, right greater than left. There is associated very mild traction bronchiectasis. 4. No thoracic lymphadenopathy or pleural effusion is seen. 5. There are mild to moderate coronary artery atherosclerotic calcifications. 6. There is multi-level mild cervicothoracic spondylosis. No acute or aggressive osseous finding is noted. Fleischner guidelines were followed. Dictated By: Daquan Garcia MD Signed By: <Electronically signed by Daquan Garcia MD in OV> 10/06/23 1129 DD/ 0943 TD/TT: Gang Sawyer: BECCA PAGE ClnCatch+Micro w/rflx Cul t (Not yet reviewed by provider) Interpretation: Performing Lab:[address] [phone] Notes/Report: [id number] Urine, Clean Catch Color Urine Yellow Appearance Urine Clear PH 6.0 5.0-9.0 Glucose Urine UA Negative Negative mg/dL Urine Blood Negative Negative Specific [place] - Urine 1.020 1.005-1.025 Urine Protein Trace Neg-Trace mg/dL Urine Ketones Negative Negative mg/dL Nitrite Urine Negative Negative Leukocyte Esterase Urine Large (3+) Negative RBC Urine 3-5 0-2 /HPF WBC Urine 11-20 0-5 /HPF Squamous Epithelial Cell Urine 3-5 0-2 /HPF Bacteria Urine 1+ None Seen Hyaline Casts Urine 0-2 0-2 /LPF Complete Blood Count Auto Di ff Reviewed date:03/02/2024 12:27:29 PM Interpretation: Performing Lab:[address] [phone] Notes/Report: White Blood Count 5.8 4.8-10.8 X10*3/uL [...] X10*3/uL NRBC Abs Auto 0.000 0.0-0.012 X10*3/uL REASON FOR REFERRAL Reason tublar adenoma of co samira due for colonoscopy Diagnosis 1 Tubular adenoma of c olon (D12.6) Referral Organization Obi Rasmussen MD Referring Provider First Name Obi Referring Provider Last Name Valery Referring Provider Speciality Internal M edicine Referred Provider Johnny Cornejo Referred Provider Specialty Gastroentero logy General Notes Monique Phillips 11:58:15 AM EST > info faxed , Monique Phillips 03/05/2023 11:58:48 AM EST > referral info form sent to patient, Monique Phillips 03/12/2023 10:41:34 AM EST > called patient with appt info Referral Priority Routine Referral Appointment Date 06/28/2023 MEDICATIONS Medication SIG (Take, Route, Frequency, Duration) Notes Start Date End Date Status Omeprazole 20 MG TAKE 1 CAPSULE BY MO UTH EVERY DAY for 90 Active Ibuprofen 200 MG 2 tablet with food o r milk as needed Orally Three times a day Not-Taking Aleve 220 MG 1 tablet with food [...] Vaccine Route Administration Date Status Comme nts Flu Vaccine Unknown 10/31/2012 Administered [facility] Fluarix Quadrivalent IM Intramuscular 10/27/2013 Administe red Fluarix Quadrivalent IM Intramuscular 11/26/2014 Administe red Fluarix Quadrivalent IM Intramuscular 12/17/2015 Administe red Flu Vaccine Unknown 11/25/2016 Administered [facility] Prevnar 13 IM Intramuscular 01/05/2017 Administered TDaP Unknown 07/13/2017 Administered [facility] Influenza High Dose IM Intramuscular 11/30/2017 Administer ed pt was given the vaccine at [facility]. Fluarix Quadrivalent Unknown 11/29/2017 Administered [facility] Fluarix Quadrivalent IM Intramuscular 01/04/2018 Administe red PPSV23 (Pnemovax) IM Intramuscular 01/18/2018 Administered Influenza High Dose IM Intramuscular 11/28/2018 Administer ed pt was given the vaccine at [facility]. Fluarix Quadrivalent Unknown 11/06/2019 Administered [facility] Covid Vaccine Unknown 05/13/2020 Administered Moderna SARS-COV-2 Moderna Unknown 06/10/2020 Administered Fluarix Quadrivalent IM Intramuscular 11/18/2020 Administe red SARS-COV-2 Moderna Unknown 12/20/2020 Administered [facility] SARS-COV-2 Moderna Unknown 07/03/2021 Administered [facility] Influenza High Dose Unknown 12/02/2021 Administered SARS-COV-2 Moderna Unknown 12/08/2021 Administered [facility] SARS-COV-2 Moderna Unknown 12/18/2022 Administered SARS-COV-2 Pfizer Unknown 10/29/2023 Administered [facility] Influenza High Dose IM Intramuscular 11/15/2023 Administer ed RSV Unknown 11/15/2023 Administered [facility] PPSV23 (Pnemovax) Unknown 12/06/2014 Refused SOCIAL HISTORY Tobacco Use: Social History Observation Description Date Details (start date - stop date) Former Smoker NA - NA Sex Assigned At : Social History Observation Description Sex Assigned At Unknown Tobacco Use/Smoking Question Answer Notes Patient is a former smoker How long has it been since y ou last smoked? > 10 years Additional Findings: Tobacco Non-User Fo rmer smoker, currently using no form of tobacco Alcohol Screen Question Answer Notes Did you have a drink contain ing alcohol in the past year? Yes How often did you have a dri nk containing alcohol in the past year? Monthly or less (1 point) How many drinks did you have on a typical day when you were drinking in the past year? 1 or 2 drinks (0 point) How often did you have 6 or more drinks on one occasion in the past year? Never (0 point) Points 1 Interpretation Negative PROBLEMS Problem Type ICD Code Onset Dates Problem Status W/U Status Risk SNOMED Code Notes Problem Type 2 diabetes mellitus without complications (E11.9) Active confirmed Type I I diabetes mellitus without complication (852371263) Problem Anxiety (F41.9) Active confirmed 600374 02 Problem Essential (primary) hypertension (I10) Active confirmed Essential hypertension (70543411) Problem Tubular adenoma of colon (D12.6) Active confirmed 921050956 Problem Bronchiectasis witho ut complication (J47.9) Active confirmed 15545792 Problem Sciatica of left arely e (M54.32) Active confirmed 87842321 Problem Dysthymia (F34.1) Active confirmed 7866 7006 Problem Pure hypercholesterolemia (E78.00) Active confirmed 768473741 Problem 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) Problem MCI (mild cognitive impairment) (G31.84) Active confirmed 529705907 Problem Calcification of coronary artery (I25.10) Active confirmed 210912042 VITAL SIGNS Blood pressure diastolic 70 mm Hg 11/15/2023 Height 63 in 11/15/2023 Blood pressure systolic 148 mm Hg 11/15/2023 Weight 137 lbs 11/15/2023 BMI 24.27 kg/m2 11/15/2023 PROCEDURES Procedure Date Ordered Date Performed Result Body Sit e Colonoscopy, Screening 07/27/2023 07/27/2023 pending biops y Encounters Encounter Location Date Provider Diagnosis Obi Rasmussen MD [address] [place] [id number] 10/22/2023 Obi Rasmussen Bronchiectasis witho ut complication J47.9 and Calcification of coronary artery I25.10 Obi Rasmussen MD [address] [place] [id number] 03/05/2023 bOi Rasmussen Bronchiectasis witho ut complication J47.9 ; Microscopic hematuria R31.29 ; Tubular adenoma of colon D12.6 ; MCI (mild cognitive impairment) G31.84 ; Essential (primary) hypertension I10 ; Type 2 diabetes mellitus without complications E11.9 ; Pure hypercholesterolemia E78.00 ; Dysthymia F34.1 and Depression screening Z13.31 Obi Rasmussen MD [address] [place] [id number] 08/23/2023 Obi Rasmussen Type 2 diabetes victor hugo itus without complications E11.9 and Pure hypercholesterolemia E78.00 Obi Rasmussen MD [address] [place] [id number] 03/02/2024 Obi Rasmussen Essential (primary) hypertension I10 ; Type 2 diabetes mellitus without complications E11.9 and Pure hypercholesterolemia E78.00 Obi Rasmussen MD [address] [place] [id number] 09/03/2023 Obi Rasmussen Bronchiectasis witho ut complication J47.9 ; Essential (primary) hypertension I10 ; Pure hypercholesterolemia E78.00 and Type 2 diabetes mellitus without complications E11.9 Obi Rasmussen MD [address] [place] [id number] 11/15/2023 Obi Rasmussen Bronchiectasis witho ut complication J47.9 ; Essential (primary) hypertension I10 ; MCI (mild cognitive impairment) G31.84 and Encounter for immunization Z23 Obi Rasmussen MD [address] [place] [id number] 09/03/2023 Obi Rasmussen ASSESSMENTS Encounter Date Diagnosis Assessment Notes Treatment Notes Treatment Clinical Notes 10/22/2023 Bronchiectasis witho ut complication (ICD-10 - J47.9) discussed findings of CT scan with patient, advised will try a course of antibiotics to see if we can stop the coughing by sterilizing the bronchietic area, she will follow up after therapy to check status 10/22/2023 Calcification of cor onary artery (ICD-10 - I25.10) is on rosuvastatin.is t goal, with only slightly elevated ldl, has no chest pain, will continue current regiment and will continue to monitor 03/05/2023 Bronchiectasis witho ut complication (ICD-10 - J47.9) seems cough is getting better 03/05/2023 Microscopic hematuri a (ICD-10 - R31.29) will continue to monitor 08/23/2023 Type 2 diabetes victor hugo itus without complications (ICD-10 - E11.9) 08/23/2023 Pure hypercholestero lemia (ICD-10 - E78.00) 03/02/2024 Essential (primary) hypertension (ICD-10 - I10) 09/03/2023 Essential (primary) hypertension (ICD-10 - I10) doing well, will continue current regiment 09/03/2023 Bronchiectasis witho ut complication (ICD-10 - J47.9) pending diagnostic testing, THE ORDER HAS BEEN FAXED TO [facility] [place] [facility] AND PATIENT IS AWARE 11/15/2023 Essential (primary) hypertension (ICD-10 - I10) doing well 11/15/2023 Bronchiectasis witho ut complication (ICD-10 - J47.9) antibiotics did not make much of a difference 03/05/2023 Tubular adenoma of c olon (ICD-10 - D12.6) will get colonoscopy this year 03/02/2024 Type 2 diabetes victor hugo itus without complications (ICD-10 - E11.9) 09/03/2023 Pure hypercholestero lemia (ICD-10 - E78.00) doing well on meds, will continue current regiment 11/15/2023 MCI (mild cognitive impairment) (ICD-10 - G31.84) have explained this to her 03/05/2023 MCI (mild cognitive impairment) (ICD-10 - G31.84) 03/02/2024 Pure hypercholestero lemia (ICD-10 - E78.00) 09/03/2023 Type 2 diabetes victor hugo itus without complications (ICD-10 - E11.9) has good a1c on no meds, will continue to monitor 11/15/2023 Encounter for immunization (ICD-10 - Z23) 03/05/2023 Essential (primary) hypertension (ICD-10 - I10) stable, will continue current regiment 03/05/2023 Type 2 diabetes victor hugo itus without complications (ICD-10 - E11.9) stable, will continue to monitor 03/05/2023 Pure hypercholestero lemia (ICD-10 - E78.00) stable, will continue current regiment 03/05/2023 Dysthymia (ICD-10 - F34.1) doing well, will continue current regiment 03/05/2023 Depression screening (ICD-10 - Z13.31) negative screen PLAN OF TREATMENT Pending Test Test Name Order Date Electrocardiogram (EKG) 12/26/2015 XR CHEST 2 VIEW PA & LAT 03/02/2022 MAMMOGRAM DIGITAL BILATERAL SCREEN 07/28 Comprehensive [place]. Panel Fast Lipid Panel 03/02/2024 Microalbumin, Random 03/02/2024 CT chest wo con 05/04/2022 CT chest wo con 09/03/2023 Hemoglobin A1c 03/02/2024 UA ClnCatch+Micro w/rflx Cult 03/02/2024 Next Appt Details Provider Name:Obi lira, 03/09/2024 11:00:00 AM, [address] [place] [address], [address], [place], [place], [phone], Insurance Providers Payer Name Payer Address Payer Phone Subscriber Number Group Number Insured Name Patient Relationship to Insured Coverage Start Date Coverage End Date [employer] [address] [place] [address] [id number] MEGHA FERMIN Self - patient is the insured [facility] [address] [place] [phone] [id number] MEGHA FERMIN Self - patient is the insured MEDICAL (GENERAL) HISTORY Medical History History ICD Code hypertension hypercholesterolemia colonoscopy 2006 due in 2016 ; Colonoscopy 04/08/[address] Cornejo (has colon polyp)colonoscopy 08/03/23 pending biopsy diabetes mellitus since 2009 2013, eye exam
--- OUTSIDE RECORDS SUMMARY | 2024-03-02 12:28 | XMS_ITS ---
Author Organization Obi Rasmussen MD Address [address] [place], [place] [phone] Care Team Providers Care Product Analyst Name Role Phone Obi Rasmussen Primary Care Provider ALLERGIES Allergen (clinical drug ingredient) Drug/Non Drug Allergy documented on EMR Reaction Allergy Type Onset Date Status lisinopril Lisinopril cough Drug Allergy Activ e REASON FOR VISIT REVIEW CT SCAN MEDICATIONS Medication SIG (Take, Route, Frequency, Duration) Notes Start Date End Date Status Aleve 220 MG 1 tablet with food o r milk as needed Orally every 12 hrs Not-Taking Ibuprofen 200 MG 2 tablet with food o r milk as needed Orally Three times a day Not-Taking Sertraline HCl 50 MG TAKE 1 TABLET BY [facility] EVERY DAY for 90 Active Omeprazole 20 MG TAKE 1 CAPSULE BY [facility] EVERY DAY for 90 Active Rosuvastatin Calcium 40 MG TAKE 1 TABLET BY MOUTH EVERY DAY Active Tylenol 325 MG 1 tablet as needed Orally every 4 hrs Not-Taking Amoxicillin-Pot Clavulanate 875-125 MG 1 tablet Orally every 12 hrs for 10 days 10/22/2023 Active Albuterol Sulfate HFA 108 (90 Base) MCG/ACT 1 puff as needed Inhalation every 4 hrs for 30 days 03/02/2022 Not-Taking PROBLEMS Problem Type ICD Code Onset Dates Problem Status W/U Status Risk SNOMED Code Notes Problem Calcification of coronary artery (I25.10) Active confirmed 242724485 VITAL SIGNS BMI 24.27 kg/m2 10/22/2023 Blood pressure systolic 162 mm Hg 10/22/19 24 Blood pressure diastolic 76 mm Hg 024 Height 63 in 10/22/2023 Weight 137 lbs 10/22/2023 Encounters Encounter Location Date Provider Diagnosis Obi Rasmussen MD [address] [place], [place] [phone] 10/22/2023 Obi Rasmussen Bronchiectasis witho ut complication J47.9 and Calcification of coronary artery I25.10 ASSESSMENTS Encounter Date Diagnosis Assessment Notes Treatment Notes Treatment Clinical Notes 10/22/2023 Bronchiectasis without complication (ICD-10 - J47.9) discussed findings of CT scan with patient, advised will try a course of antibiotics to see if we can stop the coughing by sterilizing the bronchietic area, she will follow up after therapy to check status 10/22/2023 Calcification of coronary artery (ICD-10 - I25.10) is on rosuvastatin.is t goal, with only slightly elevated ldl, has no chest pain, will continue current regiment and will continue to monitor PLAN OF TREATMENT Medication Medication Name Sig Start Date Stop Date Notes Rosuvastatin Calcium 40 MG TAKE 1 TABLET BY MOUTH EVERY DAY Amoxicillin-Pot Clavulanate 875-125 MG 1 tablet Orally every 12 hrs for 10 days 10/22/2023 Treatment Notes Assessment Notes Bronchiectasis without complication disc ussed findings of CT scan with patient, advised will try a course of antibiotics to see if we can stop the coughing by sterilizing the bronchietic area, she will follow up after therapy to check status Calcification of coronary artery is on r osuvastatin.is t goal, with only slightly elevated ldl, has no chest pain, will continue current regiment and will continue to monitor Next Appt Details Follow Up: 3 Weeks, Reason: Provider Name:Obi lira, 03/09/2024 11:00:00 AM, [address], [address], [place], [place], [phone], Progress Notes * Examination Category Sub-Category Detail Notes General Examination GENERAL APPEARANCE: alert, w ell hydrated, in no distress , female HEAD: normocephalic HEART: regular rate and rhy thm, no murmurs, rubs, gallops LUNGS: no wheezes, rales, r honchi, good air movement, clear to auscultation bilaterally SKIN: good turgor
[2024-03-02 12:39] LABS: Estimated Average Glucose 166 mg/dL; Hemoglobin A1C 198.7118 umol/L; Hemoglobin A1c % 7.4 % (<6.0)
[2024-03-02 12:56] LABS: Creatinine Urine 205.36 mg/dL; Microalbum/Creatinine Ratio Ur 14.1 ug/mg cr (<30)
[2024-03-02 13:04] LABS: Alanine Aminotransferase 31 U/L (0-31); Albumin Level 4.1 g/dL (3.5-5.0); Alkaline Phosphatase 69 U/L (39-117); Anion Gap 9 (12-20); Aspartate Amino Transferase 41 U/L (5-31); Bilirubin Total 0.4 mg/dL (0.0-1.0); Blood Urea Nitrogen 12 mg/dL (9-16); Calcium 9.3 mg/dL (8.4-10.2); Carbon Dioxide 30 mmol/L (22-29); Chloride 107 mmol/L (96-108); Cholesterol 181 mg/dL (<200); Estimated Glomerular Filt Rate > 60; Glucose Fasting 159 mg/dL (60-99); HDL Cholesterol 63 mg/dL (>40); LDL Cholesterol Calculated 97 mg/dL (<100); Potassium 4.2 mmol/L (3.3-5.1); Sodium 142 mmol/L (135-145); Total Protein 6.7 g/dL (6.5-8.0); Triglycerides 109 mg/dL (<150)
== END 2024-03-02 11:44 | disposition home or self-care (01) ==
LOC: HO.LNP 11:43
PROVIDERS: Visit Provider Internal Medicine
DX: I10 Essential (primary) hypertension (principal); E78.00 Pure hypercholesterolemia, unspecified; Z13.1 Encounter for screening for diabetes mellitus; R82.90 Unspecified abnormal findings in urine
CPT/HCPCS: 80053; 80061; 81001; 82043; 82570; 83036; 85025; 87086

== ENCOUNTER 2024-04-03 10:35 | Outpatient (REF) | payer MEDICARE, OTHER, SELFPAY ==
[2024-04-03 11:10] LABS: Appearance Urine Cloudy; Color Urine Yellow; Glucose Urine UA Negative (Negative); Leukocyte Esterase Urine Large (3+) (Negative); Nitrite Urine Negative (Negative); PH 5.5 (5.0-9.0); UMIC TRIGGER UACC YES; Urine Blood Negative (Negative); Urine Ketones Trace mg/dL (Negative); Urine Protein Trace mg/dL (Neg-Trace)
[2024-04-03 11:13] LABS: Bacteria Urine None Seen (None Seen); Hyaline Casts Urine 0-2 /LPF (0-2); RBC Urine 0-2 /HPF (0-2); UACC Culture Trigger YES; WBC Urine >50 /HPF (0-5)
--- OUTSIDE RECORDS SUMMARY | 2024-04-03 11:30 | XMS_ITS ---
Author Organization [facility] Address [address] [place] [address] Care Team Providers Care Siebel Solution Architect Name Role Phone Valery ORTIZ, Obi Primary Care Provider Arnaud Cornejo Jr, Johnny Mosqueda REASON FOR VISIT screening Encounters Encounter Location Date Provider Diagnosis [facility] Outpatient [address] [place] [phone] 08/03/2023 Johnny Cornejo Jr Encounter for screening [...]
--- OUTSIDE RECORDS SUMMARY | 2024-04-03 11:31 | XMS_ITS | Patient Health Record ---
Author Organization 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) Active confirmed 856513805 Problem Personal history of colonic polyps (Z86.010) Active confirmed 175794013 VITAL SIGNS Temperature 97.3 degrees Fahrenheit 06/28/2023 Blood pressure diastolic 00 mm Hg 06/28/2023 Height 62 in 06/28/2023 Blood pressure systolic 000 mm Hg 06/28/2023 Weight 138 lb 2 oz lbs 06/28/2023 BMI 25.26 kg/m2 06/28/2023 Encounters Encounter Location Date Provider Diagnosis [facility] [address] [place], [place] [phone] 08/03/2023 Johnny Cornejo Jr Encounter for screening colonoscopy Z12.11 ; Personal history of colonic polyps Z86.010 and Colon polyps K63.5 [facility] [address] [place] [phone] 06/28/2023 Johnny Cornejo Jr Colon cancer screening Z12.11 and Personal history of colonic polyps Z86.010 [facility] [address] [place] [phone] 05/31/2023 Johnny Cornejo Jr [facility] [address] [place] [phone] 08/05/2023 Johnny Cornejo Jr ASSESSMENTS Encounter Date [...] [place] [address] [place] [address] [id number] ALEX FERMINETTE Self - patient is the insured [facility] INDEMNITY [address] [place] [address] [id number] ZANDER JOHN Self - patient is the insured MEDICAL (GENERAL) HISTORY Medical History History ICD Code prediabetic hypercholesterolemia hypertension dyspepsia Colonoscopy 04/10, tubular adenoma, five- year followup Anxiety Surgical History Surgery Date(Month/Year) appendectomy carpal tunnel release
--- OUTSIDE RECORDS SUMMARY | 2024-04-03 11:31 | XMS_ITS ---
Author Organization Obi Rasmussen MD Address [address] [place], [place] [phone] Care Team Providers Care Batch Mixer Name Role Phone Obi Rasmussen Primary Care Provider [phone] Allergies Allergen (clinical drug ingredient) Drug/Non Drug Allergy documented on EMR Reaction Allergy Type Onset Date Status lisinopril Lisinopril cough Drug Allergy Activ e REASON FOR VISIT review labs Medications Medication SIG (Take, Route, Frequency, Duration) Notes Start Date End Date Status Ibuprofen 200 MG 2 tablet with food o r milk as needed Orally Three times a day Not-Taking Omeprazole 20 MG TAKE 1 CAPSULE BY MO [facility] EVERY DAY for 90 Active Albuterol Sulfate HFA 108 (90 Base) MCG/ACT 1 puff as needed Inhalation every 4 hrs for 30 days 03/02/2022 Not-Taking Sertraline HCl 50 MG TAKE 1 TABLET BY MO [facility] EVERY DAY for 90 Active Rosuvastatin Calcium 40 MG TAKE 1 TABLET BY MOUTH EVERY DAY Active Aleve 220 MG 1 tablet with food o r milk as needed Orally every 12 hrs Not-Taking Tylenol 325 MG 1 tablet as needed Orally every 4 hrs Not-Taking Social History Tobacco Use: Social History Observation Description Date Details (start date - stop date) Former Smoker NA - NA Tobacco Use/Smoking Question Answer Notes Patient is [...] Never (0 point) Points 1 Interpretation Negative Problems Problem Type SNOMED Code ICD Code Onset Dates Problem Status W/U Status Risk Notes Problem [id number] Memory loss (R41.3) Active confirmed Vital Signs Blood pressure systolic 166 mm Hg 03/09/19 25 Blood pressure diastolic 80 mm Hg 025 Height 63 in 03/09/2024 Weight 138 lbs 03/09/2024 BMI 24.44 kg/m2 03/09/2024 Encounters Encounter Location Date Provider Diagnosis Obi Rasmussen MD [address] [place] [address] [place] [phone] 03/09/2024 Obi Rasmussen Tubular adenoma of c olon D12.6 ; Microscopic hematuria R31.29 ; Memory loss R41.3 ; Type 2 diabetes mellitus without complications E11.9 ; Essential (primary) hypertension I10 and Pure hypercholesterolemia E78.00 Assessments Encounter Date Diagnosis (ICD Code) Assessment Notes Treatment Notes Treatment Clinical Notes Section Notes 03/09/2024 Tubular adenoma of colon (ICD-10 - D12.6) needs repeat colonoscopy 5 years 03/09/2024 Microscopic hematuri a (ICD-10 - R31.29) 03/09/2024 Memory loss (ICD-10 - R41.3) no treatment available 03/09/2024 Type 2 diabetes mellitus without complications (ICD-10 - E11.9) still not on meds 03/09/2024 Essential (primary) hypertension (ICD-10 - I10) 03/09/2024 Pure hypercholesterolemia (ICD-10 - E78.00) Plan Of Treatment Medication Medication Name Sig Start Date Stop Date Notes Rosuvastatin Calcium 40 MG TAKE 1 TABLET BY MOUTH EVERY DAY Treatment Notes Assessment Notes Tubular adenoma of colon needs repeat co lonoscopy 5 years Memory loss no treatment availab le Type 2 diabetes mellitus without complic ations still not on meds Next Appt Details Follow Up: 6 Months, Reason: Provider Name:Obi Rush ier, 08/31/2024 08:00:00 AM, [address], [address], [place], [phone], Provider Name:Obi Rush ier, 09/07/2024 10:45:00 AM, [address], [address], [place], [phone], Provider Name:Obi Rush ier, 03/06/2025 07:45:00 AM, [address], [address], [place], [phone], Provider Name:Obi Rush ier, 03/13/2025 10:30:00 AM, [address], [address], [place], [phone], Progress Notes * JOHN FERMINDOB:1950 (73 yo F)Acc No.[id number]:03/09/2024 Patient:?JOHN FERMIN Provider:?Obi Rasmussen MD :1950???Age:73 Y???Sex:Female D ate:03/09/2024 Address:[address] Subjective: * Chief Complaints: * ???Review labs * HPI: ???Depression Screening:?PHQ-9?Little interest or pleasure in doing things?Not at all,?Feeling down, depressed, or hopeless?Not at all,?Trouble falling or staying asleep, or sleeping too much?Not at all,?Feeling tired or having little energy?Not at all,?Poor appetite or overeating?Not at all,?Feeling bad about yourself or that you are a failure, or have let yourself or your family down?Not at all,?Trouble concentrating on things, such as reading the newspaper or watching television?Not at all,?Moving or speaking so slowly that other people could have noticed; or the opposite, being so fidgety or restless that you have been moving around a lot more than usual?Not at all,?Thoughts that you would be better off or of hurting yourself in some way?Not at all,?Total Score?0.?Interpretation and Intervention?Depression Screening Findings?Negative,?Follow-Up for Depression?: review of PHQ-9 found negative result, no follow-up needed.?Communication Needs:?Communication Needs?Does the patient have a hearing impairment?No,?Does the patient have a vision impairment??Yes,?If yes, what is the vision impairment??Glasses,?Does the patient have a cognition impairment??No.?Fall Risk:?History?Have you had any falls with injury in the past year??No,?Have you had two or more falls in the past year??No.?SDOH Questions:?SDOH Questions?In the past year have you been worried about losing housing??No,?In the past year have you or any family members you live with been unable to get any of the following when it was really needed? Check all that apply:?None.?Symptom(s):? patient is a 73 yo female here for review of recent labs and follow up of chronic issues. still coughing memory not good. has some stress incontince. * ROS:?General/Constitutional:?Patient denies?fatigue , headache.?Change in appetite?denies.?Chills?denies.?Fever?denies.?Ophthalmologic:?Blurred vision?denies.?Discharge?denies.?Pain?denies.?ENT:?Patient denies?decreased sense of smell , any loss of taste , sore throat.?Decreased hearing?denies.?Sore throat?denies.?Swollen glands?denies.?Endocrine:?Cold intolerance?denies.?Excessive thirst?denies.?Heat intolerance?denies.?Weight loss?denies.?Respiratory:?Cough?denies.?Shortness of breath at rest?denies.?Shortness of breath with exertion?denies.?Wheezing?denies.?Cardiovascular:?Chest pain at rest?denies.?Chest pain with exertion?denies.?Irregular heartbeat?denies.?Shortness of breath?denies.?Gastrointestinal:?Abdominal pain?denies.?Change in bowel habits?denies.?Diarrhea?denies.?Nausea?denies.?Rectal bleeding?denies.?Vomiting?denies .?Genitourinary:?Blood in urine?denies.?Difficulty urinating?denies.?Frequent urination?denies.?Urinary incontinence?Denies.?Musculoskeletal:?Patient denies?muscle aches.?Painful joints?denies.?Weakness?denies.?Peripheral Vascular:?Patient denies?red and blue toes.?Skin:?Dry skin?denies.?Itching?denies.?Denies?Mole(s),? changes in moles, new moles or any lesions of concern.?Denies?Photosensitivity.?Rash?denies.?Neurologic:?Dizziness?denies.?Fainting?denies.?Headache?denies.? * Medical History:? * Surgical History:? * Hospitalization/Major Diagno stic Procedure:? * Family History:?Father: dece ased 89 yrs, cardiac disease.?Mother: 91 yrs.?1 brother(s) , 3 sister(s) . 2 son(s) , 1 daughter(s) . .? 2 brothers Car and motorcycle accidents, No pertinent family medical history, Denies mental health/substance abuse family history, Denies mental health/substance abuse family history, Denies mental health/substance abuse family history, Denies mental health/substance abuse family history. * Social History:?Tobacco Use:?Tobacco Use/Smoking?Patient is a?former smoker,?How long has it been since you last smoked??> 10 years,?Additional Findings: Tobacco Non-User?Former smoker, currently using no form of tobacco.?Drugs/Alcohol:?Alcohol Screen?Did you have a drink containing alcohol in the past year??Yes,?How often did you have a drink containing alcohol in the past year??Monthly or less (1 point),?How many drinks did you have on a typical day when you were drinking in the past year??1 or 2 drinks (0 point),?How often did you have 6 or more drinks on one occasion in the past year??Never (0 point),?Points?1,?Interpretation?Negative.?Miscellaneous:?Caffeine: yes, frequency:, 2-3 cups per day. Children: yes. Community involvements: no. Exercise: yes, walks three times a week for 1 hour. Housing: owning. Living with: spouse. Marital status: . 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 Pets: dog, cat. Travel outside of the [place]: no. * Medications:?TakingSertralin e HCl 50 MG Tablet TAKE 1 TABLET BY MOUTH EVERY DAY Rosuvastatin Calcium 40 MG Tablet TAKE 1 TABLET BY MOUTH EVERY DAY Omeprazole 20 MG Capsule Delayed Release TAKE 1 CAPSULE BY MOUTH EVERY DAY Taking Sertraline HCl 50 MG Tablet TAKE 1 TABLET BY MOUTH EVERY DAY Taking Rosuvastatin Calcium 40 MG Tablet TAKE 1 TABLET BY MOUTH EVERY DAY Taking Omeprazole 20 MG Capsule Delayed Release TAKE 1 CAPSULE BY MOUTH EVERY DAY Not-Taking/PRNAlbuterol Sulfate HFA 108 (90 Base) MCG/ACT Aerosol Solution 1 puff as needed Inhalation every 4 hrs Tylenol 325 MG Tablet 1 tablet as needed Orally every 4 hrs Aleve 220 MG Tablet 1 tablet with food or milk as needed Orally every 12 hrs Ibuprofen 200 MG Tablet 2 tablet with food or milk as needed Orally Three times a day Medication List reviewed and reconciled with the patientNot-Taking/PRN Albuterol Sulfate HFA 108 (90 Base) MCG/ACT Aerosol Solution 1 puff as needed Inhalation every 4 hrs Not-Taking/PRN Tylenol 325 MG Tablet 1 tablet as needed Orally every 4 hrs Not-Taking/PRN Aleve 220 MG Tablet 1 tablet with food or milk as needed Orally every 12 hrs Not-Taking/PRN Ibuprofen 200 MG Tablet 2 tablet with food or milk as needed Orally Three times a day Medication List reviewed and reconciled with the patient * Allergies:?Lisinopril: cough yes[Allergies Verified] Objective: * Vitals:?Ht: 63, Wt: 138, BMI :24.44, BP:166/80, Repeat BP:140/78, Wt-k.6. * ???Past Orders: ???Lab:Comprehensive [place]. P jose guadalupe Fast (Order Date - 03/02/2024) (Collection Date & Time - 03/02/2024 12:10 PM) ? Value Reference Range ?Sodium 142 135-145 - mmo l/L ?Bilirubin Total 0.4 0.0- 1.0 - mg/dL ?Aspartate Amino Transferase 41 H 5-31 - U/L ?Alanine Aminotransferase 31 0-31 - U/L ?Total Protein 6.7 6.5-8. 0 - g/dL ?Albumin Level 4.1 3.5-5. 0 - g/dL ?Alkaline Phosphatase 69 39-117 - U/L ?Potassium 4.2 3.3-5.1 - mmol/L ?Chloride 107 96-108 - mm ol/L ?Carbon Dioxide 30 H 22-29 - mmol/L ?Anion Gap 9 L 12-20 - ?Blood Urea Nitrogen 12 9-16 - mg/dL ?Creatinine 0.89 0.5-1.4 - mg/dL ?Estimated Glomerular Filt Rate > 60 - ?Glucose Fasting 159 H 60-9 9 - mg/dL ?Calcium 9.3 8.4-10.2 - m g/dL ???Lab:Lipid Panel (Order Da te 03/02/2024) (Collection Date & Time - 03/02/2024 12:10 PM) ? Value Reference Range ?Triglycerides 109 <150 - mg/dL ?Cholesterol 181 <200 - m g/dL ?LDL Cholesterol Calculated 97 <100 - mg/dL ?HDL Cholesterol 63 >40 - mg/dL ???Lab:Microalbumin, Random (Order - 03/02/2024) (Collection Date & Time - 03/02/2024 12:10 PM) ? Value Reference Range ?Creatinine Urine 205.36 - m g/dL ?Microalbumin Urine 29.0 - mg/L ?Microalbum Creatinine Ratio Ur 14.1 <30 - ug/mg cr ???Lab:Hemoglobin A1c (Order 03/02/2024) (Collection & Time - 03/02/2024 12:10 PM) ? Value Reference Range ?Hemoglobin A1c % 7.4 H <6. 0 - % ?Estimated Average Glucose 166 - mg/dL ???Lab:Complete Blood Count Auto Diff (Order 03/02/2024) (Collection & Time - 03/02/2024 12:10 PM) ? Value Reference Range ?White Blood Count 5.8 4. 8-10.8 - X10*3/uL ?Red Blood Count 4.67 4.20 -5.50 - X10*6/uL ?Hemoglobin 13.7 12.0-16.0 - g/dl ?Hematocrit 41.0 37.0-47.0 - % ?Mean Corpuscular Volume 87.8 80.0-98.0 - fL ?Mean Corpuscular Hemoglobin 29.3 27.0-33.0 - pg ?Mean Corpuscular HGB Conc 33.4 31.0-35.0 - g/dl ?Red Cell Distribution Width 13.9 11.0-16.0 - % ?Platelet Count 170 160-4 00 - X10*3/uL ?Mean Platelet Volume 9.5 9.4-12.3 - fL ?Neutrophils Percent Auto 47.9 45-73 - % ?Imm Gran Pct Auto 0.2 0. 0-0.4 - % ?Lymphocytes Percent Auto 37.7 20-40 - % ?Monocytes Percent Auto 9.2 2-11 - % ?Eosinophils Percent Auto 4.3 H 0-4 - % ?Basophils Percent Auto 0.7 0-2 - % ?NRBC Pct Auto 0.0 0.0-0. 2 - /100WBC ?Neutrophils Absolute Auto 2.8 2.0-8.3 - x10*3/uL ?Imm Gran Abs Auto 0.01 0. 00-0.03 - X10*3/uL ?Lymphocytes Absolute Auto 2.2 1.2-4.9 - X10*3/uL ?Monocytes Absolute Auto 0.5 0.1-1.2 - X10*3/uL ?Eosinophils Absolute Auto 0.3 0.0-0.4 - X10*3/uL ?Basophils Absolute Auto 0.0 0.0-0.2 - X10*3/uL ?NRBC Abs Auto 0.000 0.0-0. 012 - X10*3/uL * Examination: ???General Examination: ?GENERAL APPEARANCE:?well developed, well nourished, in no acute distress.?HEAD:?normocephalic, atraumatic.?EYES:?pupils equal, round, reactive to light and accommodation, sclera non-icteric.?EARS:?normal.?ORAL CAVITY:?mucosa moist.?THROAT:?clear.?NECK/THYROID:?neck supple, full range of motion, no cervical lymphadenopathy, no bruits.?SKIN:?warm and dry, no suspicious lesions.?HEART:?regular rate and rhythm, S1, S2 normal, no murmurs.?LUNGS:?clear to auscultation bilaterally.?BREASTS:?No mass, no lump.?ABDOMEN:?soft, nontender, nondistended, bowel sounds present, normal, no organomegaly , no masses palpable.?RECTAL EXAM:?not done just had coloscopy.?FEMALE GENITOURINARY:?done by roll icer.?EXTREMITIES:?no clubbing, cyanosis, or edema.?NEUROLOGIC:?nonfocal, motor strength normal upper and lower extremities, sensory exam intact.? Assessment: * Assessment: 1.?Tubular adenoma of colon - D12.6 (Primary)???2.?Microscopic hematuria - R31.29???3.?Memory loss - R41.3???4.?Type 2 diabetes mellitus without complications - E11.9???5.?Essential (primary) hypertension - I10 ??6.?Pure hypercholesterolemia - E78.00??? Plan: * Treatment: 2.?Memory loss? Notes: no treatment available?? 3.?Type 2 diabetes mellitus without complications? Notes: still not on meds?? 4.?Pure hypercholesterolemia ? Continue Rosuvastatin Calcium Tablet, 40 MG, TAKE 1 TABLET BY MOUTH EVERY DAY.?? * Procedure Codes:? * Follow Up:?6 Months * * Sign off status: Completed true * Provider:?Obi Rasmussen MD Date:?0 03/09/2024 Generated for Muna arechiga/Ty/eTcarismitting on:?04/03/2024 11:31 AM EST History and Physical Notes * HPI (History of Present Illness) Category Sub-Category Detail Notes Category Not es Symptom(s) patient is a 73 yo female here for review of recent labs and follow up of chronic issues. still coughing memory not good. has some stress incontince Depression Screening PHQ-9 Little inte rest or pleasure in doing things: Not at all Feeling down, depressed, or hopeless: No t at all Trouble falling or staying asleep, or sl eeping too much: Not at all Feeling tired or having little energy: N ot at all Poor appetite or overeating: Not at all Feeling bad about yourself o r that you are a failure, or have let yourself or your family down: Not at all Trouble concentrating on thi ngs, such as reading the newspaper or watching television: Not at all Moving or speaking so slowly that other people could have noticed; or the opposite, being so fidgety or restless that you have been moving around a lot more than usual: Not at all Thoughts that you would be b eric off or of hurting yourself in some way: Not at all Total Score: 0 Interpretation and Intervention Depression Tejas kat Findings: Negative Follow-Up for Depression: : review of PH Q-9 found negative result, no follow-up needed SDOH Questions SDOH Questions In the past year have you been worried about losing housing?: No In the past year have you or any family members you live with been unable to get any of the following when it was really needed? Check all that apply:: None Fall Risk History Have you had any falls with injury i n the past year?: No Have you had two or more falls in the year?: No Communication Needs Communication Needs Does the patient have a hearing impairment: No Does the patient have a vision impairmen t?: Yes ?If yes, what is the vision impairment?: Glasses Does the patient have a cognition impair ment?: No Examination Category Sub-Category Detail Notes Category Not es General Examination GENERAL APPEARANCE: well dev eloped, well nourished, in no acute distress HEAD: normocephalic, atrau matic EYES: pupils equal, round, reactive to light and accommodation, sclera non- icteric EARS: normal THROAT: clear NECK/THYROID: neck supple, full ra nge of motion, no cervical lymphadenopathy, no bruits HEART: regular rate and rhy thm, S1, S2 normal, no murmurs LUNGS: clear to auscultatio n bilaterally ABDOMEN: soft, nontender, non distended, bowel sounds present, normal, no organomegaly , no masses palpable NEUROLOGIC: nonfocal, motor stre ngth normal upper and lower extremities, sensory exam intact SKIN: warm and dry, no vito picious lesions EXTREMITIES: no clubbing, cyanosi s, or edema BREASTS: No mass, no lump RECTAL EXAM: not done just had co loscopy FEMALE GENITOURINARY: done by roll icer ORAL CAVITY: mucosa moist
--- OUTSIDE RECORDS SUMMARY | 2024-04-03 11:31 | XMS_ITS ---
Author Organization Obi Rasmussen MD Address [address] [place] [phone] Care Team Providers Care Chucking And Boring Machine Operator Name Role Phone Obi Rasmussen Primary Care Provider Results Component Value Reference Range Notes UA ClnCatch+Micro w/rflx Cul t (Not yet reviewed by provider) Interpretation: Performing Lab:[facility], [address] [place] [phone] Notes/Report: Urine, Clean Catch Color Urine Yellow Appearance Urine Cloudy PH 5.5 5.0-9.0 Glucose Urine UA Negative Negative mg/dL Urine Blood Negative Negative Specific [place] - Urine 1.020 1.005-1.025 Urine Protein Trace Neg-Trace mg/dL Urine Ketones Trace Negative mg/dL Nitrite Urine Negative Negative Leukocyte Esterase Urine Large (3+) Negative RBC Urine 0-2 0-2 /HPF WBC Urine >50 0-5 /HPF Squamous Epithelial Cell Urine 3-5 0-2 /HPF Bacteria Urine None Seen None Seen Hyaline Casts Urine 0-2 0-2 /LPF REASON FOR VISIT repeat u/s urine in 1 month Encounters Encounter Location Date Provider Diagnosis Obi Rasmussen MD [address] [place] [phone] 04/03/2024 Obi Rasmussen Hematuria, unspecified type R31.9 Assessments Encounter Date Diagnosis (ICD Code) Assessment Notes Treatment Notes Treatment Clinical Notes Section Notes 04/03/2024 Hematuria, unspecified type (ICD-10 - R31.9) Plan Of Treatment Pending Test Test Name Order Date UA ClnCatch+Micro w/rflx Cult 04/03/2024 Next Appt Details Provider Name:Obi Rush ier, 08/31/2024 08:00:00 AM, Hospital [facility], Suite [facility], [place], [place], [phone], Provider Name:Obi Rush ier, 09/07/2024 10:45:00 AM, [address] [place] [address], Suite [facility], [place], [place], [phone], Provider Name:Obi Rush ier, 03/06/2025 07:45:00 AM, [address] [place] [address], Suite [facility], [place], [place], [phone], Provider Name:Obi Rush ier, 03/13/2025 10:30:00 AM, [address] [place] [address], Suite [facility], [place], [place], [phone], Progress Notes * ZANDER, JOHNDOB:1950 (73 yo F)Acc No.[id number]:04/03/2024 Progress Note Patient:SHIRA LANGLEYOINETTE Provider:?Obi Rasmussen MD :1950???Age:73 Y???Sex:Female D ate:04/03/2024 Address:[facility] [address], [address] [facility] Subjective: * Chief Complaints: * ???1. Repeat u/s urine in 1 month. * Medical History:? Objective: * Vitals:? Assessment: * Assessment: 1.?Hematuria, unspecified ty pe - R31.9??? Plan: * Treatment: * * The named appointment provid er may or may not be the originator of this progress note, and it is not deemed complete until electronically signed by the appointment provider. Sign off status: Pending * Provider:?Obi Rasmussen MD Date:?0 04/03/2024 Generated for Muna arechiga/Ty/Ap on:?04/03/2024 11:31 AM EST
--- OUTSIDE RECORDS SUMMARY | 2024-04-03 11:31 | XMS_ITS ---
Author Organization Obi Rasmussen MD Address [address] [place], [place] [phone] Care Team Providers Care Complex Care Nurse Practitioner Name Role Phone Obi Rasmussen Primary Care Provider Results Component Value Reference Range Notes Complete Blood Count Auto Di ff Reviewed date:03/02/2024 12:27:29 PM Interpretation: Performing Lab:[facility] [place], [address] [place] [phone] Notes/Report: White Blood Count 5.8 4.8-10.8 X10*3/uL [...] X10*3/uL NRBC Abs Auto 0.000 0.0-0.012 X10*3/uL Comprehensive [place]. Panel Fa st Reviewed date:03/02/2024 06:08:05 PM Interpretation: Performing Lab:[facility] [place], [address] [place] [phone] Notes/Report: Sodium 142 135-145 mmol/L Potassium 4.2 3.3-5.1 mmol/L Chloride 107 96-108 mmol/L Carbon Dioxide 30 22-29 mmol/L Anion Gap 9 12-20 Blood Urea Nitrogen 12 9-16 mg/dL Creatinine 0.89 0.5-1.4 mg/dL Estimated Glomerular Filt Rate > 60 Chronic Kidney Disease: Estimated GFR < 60 mL/min/1.73m2 Severe Kidney Disease: Estimated GFR < 15 mL/min/1.73m2 Glucose Fasting 159 60-99 mg/dL A fasting glucose of 126 mg/dl or greater on more than one occasion is considered diagnostic of diabetes. Calcium 9.3 8.4-10.2 mg/dL Bilirubin Total 0.4 0.0-1.0 mg/dL Aspartate Amino Transferase 41 5-31 U/L Alanine Aminotransferase 31 0-31 U/L Total Protein 6.7 6.5-8.0 g/dL Albumin Level 4.1 3.5-5.0 g/dL Alkaline Phosphatase 69 39-117 U/L Lipid Panel Reviewed date:03/02/2024 05:54:38 PM Interpretation: Performing Lab:[facility] [place], [address] [place] [phone] Notes/Report: Triglycerides 109 <150 mg/dL Desirable Triglyceride: less than 150 mg/dL Borderline High Triglyceride 150-199 mg/dL High Triglyceride: 200-499 mg/dL Very High Triglyceride: greater than or equal to 5OO mg/dL Cholesterol 181 <200 mg/dL Desirable Cholesterol: less than 200 mg/dL Borderline High Cholesterol: 200-239 mg/dL High Cholesterol: greater than 239 mg/dL LDL Cholesterol Calculated 97 <100 mg/dL Desirable LDL: less than 100 mg/dL Near Optimal/Above Optimal LDL: 110-129 mg/dL Borderline High LDL: 130-159 mg/dL High LDL: 160-189 mg/dL Very High LDL: greater than or equal to 190 mg/dL HDL Cholesterol 63 >40 mg/dL Desirable HDL: greater than 40 mg/dL Note: This HDL assay may give artificially low results in patients with liver disease. Microalbumin, Random Reviewed date:03/02/2024 06:00:22 PM Interpretation: Performing Lab:[facility] [place], [address] [place] [phone] Notes/Report: Creatinine Urine 205.36 Microalbumin Urine 29.0 Microalbum/Creatinine Ratio Ur 14.1 <30 ug/mg cr Albumin/Creatinine Ratio Reference Ranges: Normal: < 30 ug/mg creatinine Microalbuminuria: 30 - 300 ug/mg creatinine Clinical Albuminuria: > 300 ug/mg creatinine Hemoglobin A1c Reviewed date:03/02/2024 05:54:50 PM Interpretation: Performing Lab:[facility] [place], [address] [place] [phone] Notes/Report: Hemoglobin A1c % 7.4 <6.0 % Hemoglobin A1C Reference Range Adults: 4.8 - 6.0 % Non diabetic: < 6.0 % Goal: < 7.0 % Additional Action Suggested: > 8.0 % Note: Hemoglobin A1c results are invalid for patients with abnormal amounts of HbF. Blood transfusions may impact the HbA1c concentration in the patient sample. Estimated Average Glucose 166 eAG = Estimated average glucose which is %A1C expressed as average glucose, using the formula of the S1E-Xfmpovs Average Glucose study (ADAG), Diabetes Care, Vol.31,#8, 2007 UA ClnCatch+Micro w/rflx Cul t Reviewed date:04/03/2024 10:08:03 AM Interpretation:04-03-2024 repeat 1 month u/a Performing Lab:[facility] [place], [address] [place] [phone] Notes/Report: [id number] 1210 Urine, Clean Catch Color Urine Yellow Appearance Urine Clear PH 6.0 5.0-9.0 Glucose Urine UA Negative Negative mg/dL Urine Blood Negative Negative Specific [place] - Urine 1.020 1.005-1.025 Urine Protein Trace [...] Location Date Provider Diagnosis Obi Rasmussen MD [address] [place] [phone] 03/02/2024 Obi Rasmussen Essential (primary) hypertension I10 ; Type 2 diabetes mellitus without complications E11.9 and Pure hypercholesterolemia E78.00 Assessments Encounter Date Diagnosis (ICD Code) Assessment Notes Treatment Notes Treatment Clinical Notes Section Notes 03/02/2024 Essential (primary) hypertension (ICD-10 - I10) 03/02/2024 Type 2 diabetes victor hugo itus without complications (ICD-10 - E11.9) 03/02/2024 Pure hypercholesterolemia (ICD-10 - E78.00) Plan Of Treatment Next Appt Details Provider Name:Obi lira, 08/31/2024 08:00:00 AM, [address] [place] [address], [address], [phone], Provider Name:Obi lira, 09/07/2024 10:45:00 AM, [address] [place] [address], [phone], Provider Name:Obi lira, 03/06/2025 07:45:00 AM, [address] [place] [address], [phone], Provider Name:Obi redmanr, 03/13/2025 10:30:00 AM, [address], [address], [place], [place], [phone], Progress Notes * JOHN FERMINDOB:1950 (73 yo F)Acc No.[id number]:03/02/2024 Progress Note Patient:?JOHN FERMIN Provider:?Obi Rasmussen MD :1950???Age:73 Y???Sex:Female D ate:03/02/2024 Address:[place] [address] [place], [place] [phone] Subjective: * Chief Complaints: * ???1. Fasting yearly labs. * Medical History:? Objective: * Vitals:? Assessment: * Assessment: 1.?Essential (primary) hyper tension - I10 (Primary)???2.?Type 2 diabetes mellitus without complications - E11.9???3.?Pure hypercholesterolemia - E78.00??? Plan: * Treatment: 2.?Type 2 diabetes mellitus without complications?LAB: Complete Blood Count Auto Diff (Collection Date & Time - 03/02/2024 12:10 PM) ?LAB: Comprehensive [place]. Panel Fast (Collection Date & Time - 03/02/2024 12:10 PM) ?LAB: Lipid Panel (Collection Date & Time - 03/02/2024 12:10 PM) ?LAB: Microalbumin, Random (Collection Date & Time - 03/02/2024 12:10 PM) ?LAB: Hemoglobin A1c (Collection Date & Time - 03/02/2024 12:10 PM) ?LAB: UA ClnCatch+Micro w/rflx Cult (Collection Date & Time - 03/02/2024 12:10 PM) 3.?Pure hypercholesterolemia ?LAB: Complete Blood Count Auto Diff (Collection Date & Time - 03/02/2024 12:10 PM) ?LAB: Comprehensive [place]. Panel Fast (Collection Date & Time - 03/02/2024 12:10 PM) ?LAB: Lipid Panel (Collection Date & Time - 03/02/2024 12:10 PM) ?LAB: Microalbumin, Random (Collection Date & Time - 03/02/2024 12:10 PM) ?LAB: Hemoglobin A1c (Collection Date & Time - 03/02/2024 12:10 PM) ?LAB: UA ClnCatch+Micro w/rflx Cult (Collection Date & Time - 03/02/2024 12:10 PM) * Procedure Codes:?04961 VENIP UNCT, ROUTINE* * * The named appointment provid er may or may not be the originator of this progress note, and it is not deemed complete until electronically signed by the appointment provider. Sign off status: Pending * Provider:?Obi Rasmussen MD Date:?0 03/02/2024 Generated for Muna arechiga/Ty/Brandonitting on:?04/03/2024 11:31 AM EST
--- OUTSIDE RECORDS SUMMARY | 2024-04-03 11:31 | XMS_ITS ---
Author Organization [facility] Address [address] [place] [address] Care Team Providers Care Front Attendant Name Role Phone Valery ORTIZ, Obi [...] history of colonic polyps (Z86.010) Active confirmed [id number] VITAL SIGNS BMI 25.26 kg/m2 06/28/2023 Blood pressure systolic 000 mm Hg 06/28/19 24 Blood pressure diastolic 00 mm Hg 024 Height 62 in 06/28/2023 Temperature 97.3 degrees Fahrenheit 06/28/19 24 Weight 138 lb 2 oz lbs 06/28/2023 Encounters Encounter Location Date Provider Diagnosis [facility] [address] [place] [address] 06/28/2023 Johnny Cornejo Jr Colon cancer screening [...] General Examination GENERAL APPEARANCE: in no ac rafi distress HEAD: normocephalic EYES: sclera non-icteric NECK/THYROID: no lymphadenopathy HEART: S1, S2 normal, no mu rmurs CHEST: normal shape and exp ansion LUNGS: clear to auscultatio n bilaterally ABDOMEN: soft, nontender, non distended, bowel sounds present, no organomegaly SKIN: anicteric EXTREMITIES: no clubbing, cyanosi s, or edema PSYCH: cognitive function i ntact ORAL CAVITY: mucosa moist
--- OUTSIDE RECORDS SUMMARY | 2024-04-03 11:31 | XMS_ITS ---
Author Organization [facility] Address [address] [place] [address] Care Team Providers Care Range Rider Name Role Phone Obi Rasmussen MD Primary Care Provider Arnaud Cornejo Jr, Johnny Mosqueda REASON FOR VISIT pathology Encounters Encounter Location Date Provider Diagnosis [facility] [address] [place] [address] 08/05/2023 Johnny Cornejo Jr PLAN OF TREATMENT No Information
== END 2024-04-03 10:36 | disposition home or self-care (01) ==
LOC: HO.LNP 10:35
PROVIDERS: Visit Provider Internal Medicine
DX: R31.9 Hematuria, unspecified (principal)
CPT/HCPCS: 81001; 87086

== ENCOUNTER 2024-04-27 08:42 | Outpatient (REF) | payer MEDICARE, OTHER, SELFPAY ==
--- OUTSIDE RECORDS SUMMARY | 2024-04-27 09:18 | XMS_ITS ---
Author Organization [facility] Address [address] [place] [phone] Care Team Providers Care Advice Nurse Name Role Phone Obi Rasmussen MD Primary Care Provider Arnaud Cornejo Jr, Johnny Mosqueda REASON FOR VISIT pathology Encounters Encounter Location Date Provider Diagnosis [facility] [address] [place] [phone] 08/05/2023 Johnny Cornejo Jr Plan Of Treatment No Information Progress Notes * JOHN FERMIN MDOB:[birth year] (72 yo F)Acc No.[id number]:08/05/2023 Patient:?JOHN FERMIN :1950???Age:72 Y???Sex:Female Address:.[place] [address], [place], [address] Subjective: * Chief Complaints: * ???Pathology * Medical History:? * Surgical History:? * Hospitalization/Major Diagno stic Procedure:? * Medications:? Objective: Assessment: Plan: * Treatment: * Procedure Codes:? * true * Date:? Generated for Muna arechiga/Ty/eTcarismitting on:?04/27/2024 09:18 AM EST
--- OUTSIDE RECORDS SUMMARY | 2024-04-27 09:18 | XMS_ITS ---
Author Organization [facility] Address [address] [place] [phone] Care Team Providers Care Synthetic Gem Press Operator Name Role Phone Valery ORTIZ, Obi Primary Care Provider Arnaud Cornejo Jr, Johnny Mosqueda [phone] REASON FOR VISIT screening Encounters Encounter Location Date Provider Diagnosis [facility] [address] [place] [phone] 08/03/2023 Johnny Cornejo Jr Encounter for screening colonoscopy Z12.11 ; Personal history of colonic polyps Z86.010 and Colon polyps K63.5 Assessments Encounter Date Diagnosis (ICD Code) Assessment Notes Treatment Notes Treatment Clinical Notes Section Notes 08/03/2023 Encounter for screening colonoscopy (ICD-10 - Z12.11) 08/03/2023 Personal history of colonic polyps (ICD-10 - Z86.010) 08/03/2023 Colon polyps (ICD-10 - K63.5) Plan Of Treatment No Information Progress Notes * JOHN FERMIN MDOB:[birth year] (73 yo F)Acc No.[id number]:08/03/2023 COLON WITH MAC Patient:?ZANDER JOHN Suggs Provider:?Johnny Cornejo MD :1950???Age:72 Y???Sex:Female D ate:08/03/2023 Address:[address] [facility] Pcp:Obi Rasmussen MD Subjective: * Chief Complaints: * ???1. Screening. * Medical History:? Objective: * Vitals:? Assessment: * Assessment: 1.?Encounter for screening c olonoscopy - Z12.11 (Primary)???2.?Personal history of colonic polyps - Z86.010???3.?Colon polyps - K63.5??? Plan: * Treatment: * Procedure Codes:?G0105 COLOR EC CANCR SCR; COLNSCPY HI RISK, [address]9525 COLONOSCOPY AND BIOPSY, 0529F INTRVL 3+YRS PTS CLNSCP DOCD * * The named appointment provid er may or may not be the originator of this progress note, and it is not deemed complete until electronically signed by the appointment provider. Sign off status: Pending * Provider:?Johnny Cornejo MD Date:?0 08/03/2023 Generated for Muna arechiga/Ty/Brandonitting on:?04/27/2024 09:18 AM EST
--- OUTSIDE RECORDS SUMMARY | 2024-04-27 09:18 | XMS_ITS ---
Author Organization [facility] Address [address] [place] [address] Care Team Providers Care Visual Merchandise Manager Name Role Phone Valery ORTIZ, Obi Primary Care Provider Johnny Valenzuela Jr Allergies No Known Allergies REASON FOR VISIT Patient presents today for a colon screening Medications Medication SIG (Take, Route, Frequency, Duration) [...] capsules Orally On ce a day Active Problems Problem Type SNOMED Code ICD Code Onset Dates Problem Status W/U Status Risk Notes Problem [id number] Personal history of colonic polyps (Z86.010) Active confirmed Vital Signs Temperature 97.3 degrees Fahrenheit 06/28/19 24 Blood pressure systolic 000 mm Hg 06/28/19 24 Blood pressure diastolic 00 mm Hg 024 Height 62 in 06/28/2023 Weight 138 lb 2 oz lbs 06/28/2023 BMI 25.26 kg/m2 06/28/2023 Encounters Encounter Location Date Provider Diagnosis [facility] [address] [place] [address] 06/28/2023 Johnny Cornejo Jr Colon cancer screening Z12.11 and Personal history of colonic polyps Z86.010 Assessments Encounter Date Diagnosis (ICD Code) Assessment Notes Treatment Notes Treatment Clinical Notes Section Notes 06/28/2023 Colon cancer screening (ICD-10 - Z12.11) Colonoscopy material was printed We discussed colonoscopy today. We discussed risks and benefits of the procedure today. She understands these and agrees to proceed. This will be scheduled at her convenience. 06/28/2023 Personal history of colonic polyps (ICD-10 - Z86.010) We discussed colonoscopy today. We discussed risks and benefits of the procedure today. She understands these and agrees to proceed. This will be scheduled at her convenience. Plan Of Treatment Medication Medication Name Sig [...] Up: 1 Year, Reason: Progress Notes * JOHN FERMIN MDOB:[birth year] (72 yo F)Acc No.[id number]:06/28/2023 Progress Notes Patient:?JOHN FERMIN Ifeanyi Provider:?Johnny Cornejo MD :1950???Age:72 Y???Sex:Female D ate:06/28/2023 Address:[address] Pcp:Obi Rasmussen MD Subjective: * Chief Complaints: * ???1. Patient presents today for a colon screening. * HPI: ???New symptom(s):? The patient is a 72-year-old woman seen today for her preoperative colonoscopy visit. She has no complaints of rectal bleeding or change in her bowel habits. Weight and appetite are stable. Previous colonoscopy in 2017 showed a small tubular adenoma and five-year followup was recommended. * ROS:?General/Constitutional:?Change in appetite?denies.?Fatigue?denies.?ENT:?Patient denies?difficulty swallowing.?Respiratory:?Patient denies?shortness of breath.?Admits?Cough.?Cardiovascular:?Patient denies?chest pain.?Gastrointestinal:?Comments?See HPI for details.?Genitourinary:?Difficulty urinating?denies.?Incontinence?denies.?Musculoskeletal:?Patient denies?muscle aches.?Skin:?Patient denies?pruritis.?Neurologic:?Patient denies?low back pain.?Psychiatric:?Patient denies?mental or physical abuse.? * Medical History:?Prediabetic , Hypercholesterolemia, Hypertension, Dyspepsia, Colonoscopy 04/10, tubular adenoma, five-year followup, Anxiety. * Surgical History:?appendecto my , carpal tunnel release . * Family History:?Father: dece ased, diagnosed with HTN (hypertension).?Mother: , diagnosed with HTN (hypertension).? no known hx of colorectal cancer or polyps. No family history of liver cancer. * Social History:?Tobacco Use:?Tobacco Use/Smoking?Patient is a: former smoker , How long has it been since you last smoked?: > 10 years.?Drugs/Alcohol:?Alcohol Screen?Points: 2, Interpretation: Negative.?Miscellaneous:?Marital status: . Occupation: retired. * Medications:?Taking Sertrali ne HCl 50 MG Tablet 1 tablet Orally Once a day, Taking Atorvastatin Calcium 80 MG Tablet 1 tablet Orally Once a day, Taking Omeprazole 20 MG Capsule Delayed Release 2 capsules Orally Once a day, Taking Multi Vitamin/Minerals , Discontinued Losartan Potassium 25 MG Tablet 1 tablet Orally Once a day, Discontinued Biotin , Discontinued Aspir-81 81 MG Tablet Delayed Release 1 tablet Orally Once a day, Discontinued Colyte with Flavor Packs 240 GM Solution Reconstituted As directed Orally Over the specified time., Medication List reviewed and reconciled with the patient * Allergies:?N.K.D.A. Objective: * Vitals:?Wt: 138 lb 2 oz, Ht: 62 in, BMI:25.26 Index, BP: 000/00 mm Hg, Temp: 97.3. * Examination: ???General Examination: ?GENERAL APPEARANCE:?in no acute distress.?HEAD:?normocephalic.?EYES:?sclera non-icteric.?ORAL CAVITY:?mucosa moist.?NECK/THYROID:?no lymphadenopathy.?SKIN:?anicteric.?HEART:?S1, S2 normal, no murmurs.?LUNGS:?clear to auscultation bilaterally.?CHEST:?normal shape and expansion.?ABDOMEN:?soft, nontender, nondistended, bowel sounds present, no organomegaly .?EXTREMITIES:?no clubbing, cyanosis, or edema.?PSYCH:?cognitive function intact.? Assessment: * Assessment: 1.?Colon cancer screening - Z12.11 (Primary)?2.?Personal history of colonic polyps - Z86.010? We discussed colonoscopy tod lupe. We discussed risks and benefits of the procedure today. She understands these and agrees to proceed. This will be scheduled at her convenience. Plan: * Treatment: Notes: Colonoscopy material was printed?? * Preventive Medicine:? ??Counseling:?Care goal follow-up plan:?Above Normal BMI Follow-up?Giving encouragement to exercise,?BMI management provided?Yes.? ??Urinary Incontinence:?Urinary Incontinence?Assessment:?Absent,?Plan of care documented:?No, reason not specified.? * Follow Up:?1 Year * * Sign off status: Completed true * Provider:?Johnny Cornejo MD Date:?0 06/28/2023 Generated for Muna arechiga/Ty/Ap on:?04/27/2024 09:18 AM EST History and Physical Notes * HPI (History of Present Illness) Category Sub-Category Detail Notes Category Not es New symptom(s) The patient i s a 72-year-old woman seen today for her preoperative colonoscopy visit. She has no complaints of rectal bleeding or change in her bowel habits. Weight and appetite are stable. Previous colonoscopy in 2017 showed a small tubular adenoma and five-year followup was recommended. Examination Category Sub-Category Detail Notes Category Not es General Examination GENERAL APPEARANCE: in no acute di stress HEAD: normocephalic EYES: sclera non-icteric NECK/THYROID: no lymphadenopathy HEART: S1, S2 normal, no mu rmurs CHEST: normal shape and exp ansion LUNGS: clear to auscultatio n bilaterally ABDOMEN: soft, nontender, non distended, bowel sounds present, no organomegaly SKIN: anicteric EXTREMITIES: no clubbing, cyanosi s, or edema PSYCH: cognitive function i ntact ORAL CAVITY: mucosa moist
--- OUTSIDE RECORDS SUMMARY | 2024-04-27 09:19 | XMS_ITS ---
Author Organization Obi Rasmussen MD Address [address] [place], [place] [phone] Care Team Providers Care Braiding Machine Operator Name Role Phone Obi Rasmussen Primary Care Provider [phone] Results Component Value Reference Range Notes Complete Blood Count Auto Di ff Reviewed date:03/02/2024 12:27:29 PM Interpretation: Performing Lab:[facility], [address] [place] [phone] Notes/Report: White Blood Count 5.8 4.8-10.8 X10*3/uL [...] NRBC Abs Auto 0.000 0.0-0.012 X10*3/uL Comprehensive [place]. Panel Fa st Reviewed date:03/02/2024 06:08:05 PM Interpretation: Performing Lab:[facility], [address] [place] [phone] Notes/Report: Sodium 142 135-145 mmol/L Potassium 4.2 [...] Panel Reviewed date:03/02/2024 05:54:38 PM Interpretation: Performing Lab:[facility], [address] [place] [phone] Notes/Report: Triglycerides 109 <150 mg/dL Desirable Triglyceride: [...] Random Reviewed date:03/02/2024 06:00:22 PM Interpretation: Performing Lab:[facility], [address] [place] [phone] Notes/Report: Creatinine Urine 205.36 Microalbumin Urine 29.0 Microalbum/Creatinine Ratio Ur 14.1 <30 ug/mg cr Albumin/Creatinine Ratio Reference Ranges: Normal: < 30 ug/mg creatinine Microalbuminuria: 30 - 300 ug/mg creatinine Clinical Albuminuria: > 300 ug/mg creatinine Hemoglobin A1c Reviewed date:03/02/2024 05:54:50 PM Interpretation: Performing Lab:[facility], [address] [place] [phone] Notes/Report: Hemoglobin A1c % 7.4 <6.0 % [...] average glucose, using the formula of the I2P-Hbklpan Average Glucose study (ADAG), Diabetes Care, Vol.31,#8, 2007 UA ClnCatch+Micro w/rflx Cul t Reviewed date:04/03/2024 10:08:03 AM Interpretation:04-03-2024 repeat 1 month u/a Performing Lab:[facility], [address] [place] [phone] Notes/Report: [id number] 1210 Urine, Clean Catch Color Urine Yellow Appearance Urine Clear PH 6.0 5.0-9.0 Glucose Urine UA Negative Negative mg/dL Urine Blood Negative Negative Specific [place] - Urine 1.020 1.005-1.025 Urine Protein Trace [...] Location Date Provider Diagnosis Obi Rasmussen MD [address] [place] [phone] 03/02/2024 Obi Rasmussen Essential (primary) hypertension I10 [...] Details Provider Name:Obi lira, 08/31/2024 08:00:00 AM, [address] [place] [address], [address], [phone], Provider Name:Obi lira, 09/07/2024 10:45:00 AM, [address] [place] [address], [phone], Provider Name:Obi lira, 03/06/2025 07:45:00 AM, [address] [place] [address], [phone], Provider Name:Obi redmanr, 03/13/2025 10:30:00 AM, [address], [address], [place], [place], [phone], Progress Notes * JOHN FERMINDOB:1950 (73 yo F)Acc No.[id number]:03/02/2024 Progress Note Patient:?JOHN FERMIN Provider:?Obi Rasmussen MD :1950???Age:73 Y???Sex:Female D ate:03/02/2024 Address:[place] [address] [place], [place] [phone] Subjective: * Chief Complaints: * ???1. Fasting yearly labs. * Medical History:? Objective: * Vitals:? Assessment: * Assessment: 1.?Essential (primary) hyper tension - I10 (Primary)???2.?Type 2 diabetes mellitus without complications - E11.9???3.?Pure hypercholesterolemia - E78.00??? Plan: * Treatment: 2.?Type 2 diabetes mellitus without complications?LAB: Complete Blood Count Auto Diff (Collection Date & Time - 03/02/2024 12:10 PM) ?LAB: Comprehensive [place]. Panel Fast (Collection Date & Time - [...] Time - 03/02/2024 12:10 PM) ?LAB: Comprehensive [place]. Panel Fast (Collection Date & Time - 03/02/2024 12:10 PM) ?LAB: Lipid Panel (Collection Date & Time - 03/02/2024 12:10 PM) ?LAB: Microalbumin, Random (Collection Date & Time - 03/02/2024 12:10 PM) ?LAB: Hemoglobin A1c (Collection Date & Time - 03/02/2024 12:10 PM) ?LAB: UA ClnCatch+Micro w/rflx Cult (Collection Date & Time - 03/02/2024 12:10 PM) * Procedure Codes:?06123 VENIP UNCT, ROUTINE* * * The named appointment provid er may or may not be the originator of this progress note, and it is not deemed complete until electronically signed by the appointment provider. Sign off status: Pending * Provider:?Obi Rasmussen MD Date:?0 03/02/2024 Generated for Muna arechiga/Ty/Brandonitting on:?04/27/2024 09:19 AM EST
--- OUTSIDE RECORDS SUMMARY | 2024-04-27 09:19 | XMS_ITS ---
Author Organization Obi Rasmussen MD Address [address] [place] [phone] Care Team Providers Care Php Programmer Name Role Phone Obi Rasmussen Primary Care Provider [phone] Results Component Value Reference Range Notes UA ClnCatch+Micro w/rflx Cul t Reviewed date:04/03/2024 12:47:13 PM Interpretation: Performing Lab:[facility], [address] [place] [phone] Notes/Report: Urine, Clean Catch Color Urine Yellow Appearance Urine Cloudy PH 5.5 5.0-9.0 Glucose Urine UA Negative Negative mg/dL Urine Blood Negative Negative Specific [place] - Urine 1.020 1.005-1.025 Urine Protein Trace [...] Obi Rasmussen MD [address] [place] [phone] 04/03/2024 Obi Rasmussen Hematuria, unspecified type R31.9 Assessments Encounter Date Diagnosis (ICD Code) Assessment Notes Treatment Notes Treatment Clinical Notes Section Notes 04/03/2024 Hematuria, unspecified type (ICD-10 - R31.9) Plan Of Treatment Next Appt Details Provider Name:Obi redmanr, 08/31/2024 08:00:00 AM, [facility], [address] [facility], [place], [place], [phone], Provider Name:Obi redmanr, 09/07/2024 10:45:00 AM, [address], [address] [facility], [place], [place], [phone], Provider Name:Obi redmanr, 03/06/2025 07:45:00 AM, [address] [place] [address], [address] [facility], [place], [place], [phone], Provider Name:Obi redmanr, 03/13/2025 10:30:00 AM, [facility], [address] [facility], [place], [place], [phone], Progress Notes * JOHN FERMINDOB:1950 (73 yo F)Acc No.[id number]:04/03/2024 Progress Note Patient:JOHN LANGLEY Provider:?Obi Rasmussen MD :1950???Age:73 Y???Sex:Female D ate:04/03/2024 Address:[place] [address] [place], [place] [phone] Subjective: * Chief Complaints: * ???1. Repeat u/s urine in 1 month. * Medical History:? Objective: * Vitals:? Assessment: * Assessment: 1.?Hematuria, unspecified ty pe - R31.9 (Primary)??? Plan: * Treatment: * * The named appointment provid er may or may not be the originator of this progress note, and it is not deemed complete until electronically signed by the appointment provider. Sign off status: Pending * Provider:?Obi Rasmussen MD Date:?0 04/03/2024 Generated for Muna arechiga/Ty/Brandonitting on:?04/27/2024 09:19 AM EST
--- OUTSIDE RECORDS SUMMARY | 2024-04-27 09:19 | XMS_ITS | Patient Health Record ---
Author Organization [facility] Address [address] [place] [address] Care Team Providers Care French Folding Machine Operator Name Role Phone Valery ORTIZ, Obi Primary Care Provider Johnny Valenzuela Jr Unavailable Allergies No Known Allergies Results Component Value Reference Range Notes Pathology Reviewed date:08/05/2023 09:52:36 AM Interpretation: Performing Lab:[facility], [address] [place] [phone] Notes/Report: Name: Shira Fermindelma lowevilma Ifeanyi Age/Sex: 72/F : 1950 Unit#: [id number] Attend Dr: Johnny Cornejo MD Re08/03/23 Status : [facility] Location: [facility] Disch: SPEC : [id number] RECD : 08/03/23 STATUS: BRENDA PENA NUM: [id number] ALBA: 08/03/23 [facility] DR: Johnny Cornejo MD ENTERED: 08/03/23- 30 SP TYPE: Surgical OTHR DR: Obi Rasmussen MD ORDERED: HE Stain/3, Gross Micro L4 Diagnosis Rectum, polypectomy: Tubular adenoma; negative for high-grade dysplasia or carcinoma. Clinical History Pre-Op Dx: Screening Post-Op Dx: Colon polyp Microscopic Description Microscopic sections reviewed. Material Received Rectal polyp Gross Description Received in formalin labeled ?rectal polyp? is a 0.3 cm whitney irregular tissue fragment, submitted in toto in a cassette labeled A. CEDS Copies To: Obi Rasmussen MD [address] [place] [address] [address] [place] [address] Johnny Cornejo MD [address] [place] [address] [address] [place] [address] Signed (si gnature on file) Saad Cruz MD 08/04/23 1707 END OF REPORT Reason For Referral No Information Medications Medication SIG (Take, Route, Frequency, Duration) [...] capsules Orally On ce a day Active Immunizations Vaccine Route Administration Date Status Comme nts Influenza Unknown 11/10/2022 Administered Problems Problem Type SNOMED Code ICD Code Onset Dates Problem Status W/U Status Risk Notes Problem 939974501 Colon cancer screening (Z12.11) Active confirmed Problem 009377263 Personal history of colonic polyps (Z86.010) Active confirmed Problem 127265530 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 (Z79.82) Active confirmed Vital Signs Temperature 97.3 degrees Fahrenheit 06/28/2023 Blood pressure diastolic 00 mm Hg 06/28/2023 Height 62 in 06/28/2023 Blood pressure systolic 000 mm Hg 06/28/2023 Weight 138 lb 2 oz lbs 06/28/2023 BMI 25.26 kg/m2 06/28/2023 Encounters Encounter Location Date Provider Diagnosis [facility] Outpatient [address] [place] [phone] 08/03/2023 Johnny Cornejo Jr Encounter for screening colonoscopy Z12.11 ; Personal history of colonic polyps Z86.010 and Colon polyps K63.5 [facility] [address] [place] [phone] 06/28/2023 Johnny Cornejo Jr Colon cancer screening Z12.11 and Personal history of colonic polyps Z86.010 [facility] [address] [place] [phone] 05/31/2023 Johnny Cornejo Jr [facility] [address] [place] [phone] 08/05/2023 Johnny Cornejo Jr Assessments Encounter Date Diagnosis (ICD Code) Assessment [...] This will be scheduled at her convenience. 08/03/2023 Colon polyps (ICD-10 - K63.5) Plan Of Treatment Future Test Test Name Order Date COLONOSCOPY 09/12/2015 COLONOSCOPY 06/28/2023 Insurance Providers Payer Name Payer Address Payer Phone Subscriber Number Group Number Insured Name Patient Relationship to Insured Coverage Start Date Coverage End Date MEDICARE OF [place] [address] [place]IASIDOliver JannetteMAVIS [id number] JOHN FERMIN Self - patient is the insured [facility] [address] [place] [address] [id number] JOHN FERMIN Self - patient is the insured Medical (General) History Medical History History ICD Code prediabetic hypercholesterolemia hypertension dyspepsia Colonoscopy 04/10, tubular adenoma, five- year followup Anxiety Surgical History Surgery Date(Month/Year) appendectomy carpal tunnel release
--- OUTSIDE RECORDS SUMMARY | 2024-04-27 09:20 | XMS_ITS ---
Author Organization Obi Rasmussen MD Address [address] [place], [place] [phone] Care Team Providers Care Nurse Head Name Role Phone Obi Rasmussen Primary Care Provider Allergies Allergen (clinical drug ingredient) Drug/Non Drug Allergy documented on EMR Reaction Allergy Type Onset Date Status Lisinopril cough Drug Allergy Active REASON FOR VISIT review labs Medications Medication SIG (Take, Route, Frequency, Duration) Notes Start Date End Date Status Ibuprofen 200 MG 2 tablet with food o r milk as needed Orally Three times a day Not-Taking Omeprazole 20 MG TAKE 1 CAPSULE BY [facility] EVERY DAY for 90 Active Albuterol Sulfate [...] Problem Status W/U Status Risk Notes Problem 03108045 Memory loss (R41.3) Active confirmed Vital Signs Blood pressure systolic 166 mm Hg 03/09/19 25 Blood pressure diastolic 80 mm Hg 025 Height 63 in 03/09/2024 Weight 138 lbs 03/09/2024 BMI 24.44 kg/m2 03/09/2024 Encounters Encounter Location Date Provider Diagnosis Obi Rasmussen MD [address] [place] [address] [place] [phone] 03/09/2024 Obi Rasmussen Tubular adenoma of c [...] Follow Up: 6 Months, Reason: Provider Name:Obi Rsuh ier, 08/31/2024 08:00:00 AM, [address], [address], [place], [phone], Provider Name:Obi Rush ier, 09/07/2024 10:45:00 AM, [address], [address], [place], [phone], Provider Name:Obi Rush ier, 03/06/2025 07:45:00 AM, [address], [address], [place], [phone], Provider Name:Obi redmanr, 03/13/2025 10:30:00 AM, [address], [address], [place], [phone], Progress Notes * JOHN FERMINDOB:1950 (73 yo F)Acc No.[id number]:03/09/2024 Patient:?JOHN FERMIN Provider:?Obi Rasmussen MD :1950???Age:73 Y???Sex:Female D ate:03/09/2024 Address:[address] Subjective: * Chief Complaints: * ???Review labs [...] Marital status: . 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 Pets: dog, cat. Travel outside of [...] Repeat BP:140/78, Wt-k.6. * ???Past Orders: ???Lab:Comprehensive [place]. P jose guadalupe Fast (Order Date - [...] m g/dL ???Lab:Lipid Panel (Order Da te - 03/02/2024) (Collection Date & Time - [...] ug/mg cr ???Lab:Hemoglobin A1c (Order 03/02/2024) (Collection Date & Time - 03/02/2024 12:10 PM) ? Value Reference Range ?Hemoglobin A1c % 7.4 H <6. 0 - % ?Estimated Average Glucose 166 - mg/dL ???Lab:Complete Blood Count Auto Diff (Order 03/02/2024) (Collection Date & Time - 03/02/2024 [...] EXAM:?not done just had coloscopy.?FEMALE GENITOURINARY:?done by dental patient coordinator.?EXTREMITIES:?no clubbing, cyanosis, or edema.?NEUROLOGIC:?nonfocal, motor strength normal [...] Rasmussen MD Date:?0 03/09/2024 Generated for Muna arechiga/Ty/eTransmitting on:?04/27/2024 09:19 AM EST History and Physical Notes * [...] had co loscopy FEMALE GENITOURINARY: done by dental patient coordinator ORAL CAVITY: mucosa moist
== END 2024-04-27 08:43 | disposition home or self-care (01) ==
LOC: HO.MAMMO 08:42
PROVIDERS: PCP Internal Medicine; Visit Provider Internal Medicine
DX: Z12.31 Encounter for screening mammogram for malignant neoplasm of breast (principal)
CPT/HCPCS: 77063; 77067

== ENCOUNTER → 2024-04-27 08:45 | Outpatient (BNV) | payer MEDICARE, OTHER, SELFPAY | PROVIDERS: PCP Internal Medicine; Visit Provider Internal Medicine | DX: Z12.31 Encounter for screening mammogram for malignant neoplasm of breast (principal) | CPT/HCPCS: 77063; 77067 ==

== ENCOUNTER 2024-08-29 10:05 | Outpatient (REF) | payer MEDICARE, OTHER, SELFPAY ==
--- OUTSIDE RECORDS SUMMARY | 2024-08-29 04:00 | XMS_ITS ---
Author Organization Obi Rasmussen MD Address [address] [place] [phone] Care Team Providers Care Poultry Service Technician Name Role Phone Obi Rasmussen Primary Care Provider [phone] Results Component Value Reference Range Notes Hemoglobin A1c (Not yet revi ewed by provider) Interpretation: Performing Lab:[facility], [address] [place] [phone] Notes/Report: Hemoglobin A1c % 7.0 <6.0 % Hemoglobin A1C Reference Range Adults: 4.8 - 6.0 % Non diabetic: < 6.0 % Goal: < 7.0 % Additional Action Suggested: > 8.0 % Note: Hemoglobin A1c results are invalid for patients with abnormal amounts of HbF. Blood transfusions may impact the HbA1c concentration in the patient sample. Estimated Average Glucose 154 eAG = Estimated average glucose which is %A1C expressed as average glucose, using the formula of the B8I-Foddzal Average Glucose study (ADAG), Diabetes Care, Vol.31,#8, Sep. 2007 REASON FOR VISIT FASTING LIPIDS Encounters Encounter Location Date Provider Diagnosis Obi Rasmussen MD [address] [place] [phone] 08/29/2024 Obi Rasmussen Type 2 diabetes victor hugo itus without complications E11.9 and Pure hypercholesterolemia E78.00 Assessments Encounter Date Diagnosis (ICD Code) Assessment Notes Treatment Notes Treatment Clinical Notes Section Notes 08/29/2024 Type 2 diabetes victor hugo itus without complications (ICD-10 - E11.9) 08/29/2024 Pure hypercholesterolemia (ICD-10 - E78.00) Plan Of Treatment Pending Test Test Name Order Date Liver Panel 08/29/2024 Glucose Fasting 08/29/2024 Lipid Panel with Reflex 08/29/2024 Hemoglobin A1c 08/29/2024 Next Appt Details Provider Name:Obi Rush ier, 09/07/2024 10:45:00 AM, [address] [place] [address], Suite [facility], [place], [place], [phone], Provider Name:Obi Maria Luz Victor Manuel ier, 03/06/2025 07:45:00 AM, [address] [place] [address], Suite [facility], [place], [place], [phone], Provider Name:Obi Rush ier, 03/13/2025 10:30:00 AM, [address] [place] [address], Suite [facility], [place], [place], [phone], Progress Notes * JOHN FERMINDOB:1950 (73 yo F)Acc No.[id number]:08/29/2024 Progress Note Patient: JOHN CORNEJO Provider: Edgar Rasmussen MD :1950 A ge:73 Y S ex:Female Date:08/29/2024 Address:[place] [address] [place], [place] [phone] Subjective: * Chief Complaints: * 1 . FASTING LIPIDS. * Medical History: Objective: * Vitals: Assessment: * Assessment: 1. T ype 2 diabetes mellitus without complications - E11.9 (Primary) 2 . P ure hypercholesterolemia - E78.00 Plan: * Treatment: 2. P ure hypercholesterolemia L AB: Liver Panel L AB: Glucose Fasting L AB: Lipid Panel with Reflex L AB: Hemoglobin A1c (Collection Date & Time - 08/29/2024 08:00 AM) * Procedure Codes: 3 6415 VENIPUNCT, ROUTINE* * * The named appointment provid er may or may not be the originator of this progress note, and it is not deemed complete until electronically signed by the appointment provider. Sign off status: Pending * Provider: Edgar Rasmussen MD Date: 08/29/2024 Generated for Muna arechiga/Ty/Ap on: 08/29/2024 10:49 AM EDT
[2024-08-29 10:40] LABS: Hemoglobin A1C 186.0928 umol/L; Total Hemoglobin (HGBA1C) 3521.2077 umol/L
[2024-08-29 11:03] LABS: Alanine Aminotransferase 34 U/L (0-31); Albumin Level 4.2 g/dL (3.5-5.0); Alkaline Phosphatase 70 U/L (39-117); Aspartate Amino Transferase 49 U/L (5-31); Cholesterol 170 mg/dL (<200); HDL Cholesterol 51 mg/dL (>40); Total Protein 6.4 g/dL (6.5-8.0); Triglycerides 101 mg/dL (<150)
[2024-08-29 11:35] LABS: Reflex LDLD? No
== END 2024-08-29 10:06 | disposition home or self-care (01) ==
LOC: HO.LNP 10:05
PROVIDERS: Visit Provider Internal Medicine
DX: E11.9 Type 2 diabetes mellitus without complications (principal); E78.00 Pure hypercholesterolemia, unspecified
CPT/HCPCS: 80061; 80076; 82947; 83036